=== PATIENT | male | born 1945 | race Caucasian/White ===

== ENCOUNTER → 2016-07-25 | Outpatient (CLI) | payer MEDICARE, OTHER ==
[~2016-07-25] MED LIST: AMLOPIDINE PO; ASPIRIN 32325 MG/TA1 PO; ASPIRIN 32325 MG/TAB PO; ASPIRIN 81M81 MG/TA2 PO; ASPIRIN E.C.325 MG PO; ATENOLOL25 MG PO; BETAPACE 80MG80 MG PO; CALCIUM 600-D 61 TAB PO; CALCIUM WITH D1 CTB PO; CALCIUM/VITAMIN1 CAP PO; CALCIUM1 CAP PO; CATAPRES 0.1MG0.1 MG PO; CATAPRES-T0.2 MG/24 TD; CO ENZYME Q-1050 MG PO; COUMADIN 4MG4 MG/TAB PO; DIOVAN160 M1 PO; ELIQUIS 5MG PO; GUAIFENESIN PO; HEALTH CARE AM325 M1 PO; ISMO20 MG PO; KLOR-CON 1010 MEQ PO; KLOR-CON M2020 MEQ PO; LASIX 20MG TABL20 MG PO; LASIX40 MG PO; LIPITOR 40MG TA40 MG PO; LIPITOR 80MG80 MG PO; LIPITOR40 MG PO; LOPRESSOR 225 MG/TAB PO; LOPRESSOR 550 MG/TAB PO; MICARDIS HCT PO; MULTIPLE VITAMI1 CAP PO; NIASPAN 500MG500 MG PO; NIASPAN500 MG PO; PLAVIX 75MG TAB75 MG PO; PLENDIL PO; PLENDIL10 MG PO; PRADAXA 150MG150 MG PO; PRED FORTE 1 ML1 ML OP; PRILOSEC 20MG20 MG PO; PRILOTC PO; PRINIVIL10 MG PO; PRINIVIL20 MG PO; PRINIVIL40 MG PO; PRINIVIL5 MG PO; REQUIP 0.5MG0.5 MG PO; REQUIP 1MG T1 MG/TAB PO; REQUIP2 MG PO; REQUIP3 MG PO; RT SPIRIVA18 MCG IH; SPIRIVA INH INH; SUPER B COMPLEX1 TA2 PO; TIKOSYN0.5 MG PO; VIAGRA50 M1 PO; VIAGRA50 MG PO; VIGAMOX 0.5% 3 M3 ML OP; VITAMIN B COMPL1 SGL PO; VITAMIN B-12100 MCG PO; VITAMIN B122000 MCG PO; ZESTRIL 20MG TA20 MG PO; [UNRECOGNIZED DRUG - OTHER] PO
== END ==
LOC: COL.PUL 07-04 10:00
DX: J44.9 Chronic obstructive pulmonary disease, unspecified (principal)

== ENCOUNTER 2018-03-20 23:46 | Emergency (ER) | payer MEDICARE, OTHER ==
[2008-07-07 12:36] VITALS: BP 137/59
[~2018-03-20] VITALS: Ht 180.3 cm; Wt 104.5 kg
[2018-03-20 23:48] VITALS: TEMP 97.9
[2018-03-21 00:40] LABS: BASO # 0.1 (0.0-0.2); BASO % 1.3 % (0.0-2.0); EOS # 1.6 (0.0-0.7); EOS % 17.2 % (0-4.0); GRAN # 5.7 (1.4-6.5); GRAN % 59.1 % (42.2-75.2); HEMATOCRIT 37.7 % (42.0-52.0); HEMOGLOBIN 12.9 g/dl (13.5-18.0); LYMPH # 1.2 (1.2-3.4); LYMPH % 12.2 % (20.0-51.0); MEAN CELL VOLUME 88 fl (80.0-100.0); MEAN CORPUSCULAR HEMOGLOBIN 30 pg (27.0-31.0); MEAN CORPUSCULAR HGB CONC 34 g/dl (33.0-37.0); MONO # 0.9 (0.1-0.6); MONO % 9.4 % (1.7-9.3); PLATELET COUNT 433 K/mm3 (130-400); RED BLOOD COUNT 4.28 M/mm3 (4.20-5.60); REDCELL DISTRIBUTION WIDTH-CV 14.8 % (11.5-14.5)
[2018-03-21 00:49] LABS: ALANINE AMINOTRANSFERASE 36 U/L (21-72); ALBUMIN 3.9 gm/dL (3.5-5.0); ALKALINE PHOSPHATASE 108 U/L (50-136); ANION GAP 7 mmol/L (7-16); AST,SGOT 41 U/L (15-37); BILIRUBIN,TOTAL 0.9 mg/dL (0.0-1.0); BLOOD UREA NITROGEN 13 mg/dL (9-20); CALCIUM 8.9 mg/dL (8.4-10.2); CARBON DIOXIDE 29 mmol/L (22-30); CHLORIDE 98 mmol/L (98-107); CREATININE, serum 1.14 mg/dL (0.66-1.25); GLUCOSE 119 mg/dL (74-106); POTASSIUM 3.8 mmol/L (3.4-5.0); SODIUM 133 mmol/L (137-145)
[2018-03-21 01:07] LABS: TROPONIN-I < 0.012 ng/mL (0.000-0.034)
[2018-03-21] MEDS ORDERED: PREDNISONE20 MG PO ×2 (01:26→12:44)
[2018-03-21] MEDS ORDERED: DOXYCYCLINE 10100 MG PO ×2 (01:26→12:44)
[2018-03-21] MEDS ORDERED: PROAIR HFA0.09 MG/AC IH ×2 (01:27→12:44)
[2018-03-21] MEDS ORDERED: ALBUTEROL0.83 MG/ML IH ×2 (02:04→12:44)
[2018-03-21 02:05] VITALS: BP 132/89; PULSE 78
[2018-03-23] MEDS ORDERED: RANEXA 500MG T500 MG PO (13:11)
[2018-03-23] MEDS ORDERED: CATAPRES 0.1MG0.1 MG PO (13:12)
[2018-03-23] MEDS ORDERED: NORVASC 10MG10 MG PO (13:12)
[2018-03-23] MEDS ORDERED: MAGNESIUM500 MG PO (13:14)
== END 2018-03-21 02:06 | disposition home or self-care (01) ==
LOC: COL.ER 23:46
PROVIDERS: Emergency Medicine
DX: J44.1 Chronic obstructive pulmonary disease with (acute) exacerbation (principal); I48.91 Unspecified atrial fibrillation; I50.9 Heart failure, unspecified; F17.210 Nicotine dependence, cigarettes, uncomplicated; Z95.5 Presence of coronary angioplasty implant and graft; Z79.01 Long term (current) use of anticoagulants; Z79.82 Long term (current) use of aspirin
CPT/HCPCS: J1940; J2930; J3475

== ENCOUNTER 2018-05-08 12:33 | Day surgery (SDC) | payer MEDICARE, OTHER ==
[2008-07-07 12:36] VITALS: BP 137/59
[~2018-05-08] VITALS: Ht 180.3 cm; Wt 93.0 kg
[2018-05-08] VITALS (9 sets, daily range): BP systolic 124–174; BP diastolic 63–91; PULSE 68–71; TEMP 98
[~2018-05-08 12:33] MED LIST changes: +ALBUTEROL0.83 MG/ML IH; +DOXYCYCLINE 10100 MG PO; +MAGNESIUM500 MG PO; +NORVASC 10MG10 MG PO; +PREDNISONE20 MG PO; +PROAIR HFA0.09 MG/AC IH; +RANEXA 500MG T500 MG PO
[2018-05-08] MEDS ORDERED: TIKOSYN0.5 MG PO (13:30)
[2018-05-08] MEDS ORDERED: DEMADEX 20MG20 M1 PO (13:34)
[2018-05-08] MEDS ORDERED: PROAIR HFA0.09 MG/AC IH (13:37)
[2018-05-08 13:44] LABS: HEMOGLOBIN 11.7 g/dl (13.5-18.0); MEAN CELL VOLUME 88 fl (80.0-100.0); MEAN CORPUSCULAR HEMOGLOBIN 30 pg (27.0-31.0); MEAN CORPUSCULAR HGB CONC 34 g/dl (33.0-37.0); MEAN PLATELET VOLUME 8.7 fl (7.4-10.4); PLATELET COUNT 322 K/mm3 (130-400); REDCELL DISTRIBUTION WIDTH-CV 13.7 % (11.5-14.5)
[2018-05-08 13:46] LABS: HEMATOCRIT 34.2 % (42.0-52.0)
[2018-05-08 13:57] LABS: CALCIUM 8.6 mg/dL (8.4-10.2); CREATININE, serum 1.51 mg/dL (0.66-1.25)
[2018-05-08 13:59] LABS: INR 1.2 (0.8-3.0)
--- NOTE | 2018-05-08 14:55 | NUR ---
ALL MEDICATIONS GIVEN VIA VERBAL ORDER WITH READBACK WITH MD. SEE MERGE FOR ALL MEDICATION ADMIN TIMES.
--- NOTE | 2018-05-08 15:45 | NUR ---
Pt returned to EU 12 per bed s/p heart cath. Pt resting well, at bedside.
--- NOTE | 2018-05-08 16:36 | NUR ---
Report to Gloria Molina RN who assumed care at this time.
--- NOTE | 2018-05-08 18:03 | NUR ---
Discharge instructions given to pt.Pt verbalizes understanding.
--- NOTE | 2018-05-08 18:31 | NUR ---
INT removed,catheter tip intact.Pt escorted out via wheelchair by this nurse.
== END 2018-05-08 18:31 | disposition home or self-care (01) ==
LOC: COL.CAR 12:33
PROVIDERS: Internal Medicine Interventional Cardiology
DX: I34.0 Nonrheumatic mitral (valve) insufficiency (principal); Z95.2 Presence of prosthetic heart valve; I73.9 Peripheral vascular disease, unspecified; I50.30 Unspecified diastolic (congestive) heart failure; J44.9 Chronic obstructive pulmonary disease, unspecified; N18.9 Chronic kidney disease, unspecified; Z79.899 Other long term (current) drug therapy; Z95.5 Presence of coronary angioplasty implant and graft; Z86.73 Personal history of transient ischemic attack (TIA), and cerebral infarction without residual deficits; Z95.820 Peripheral vascular angioplasty status with implants and grafts; Z87.891 Personal history of nicotine dependence; Z95.0 Presence of cardiac pacemaker; Z79.01 Long term (current) use of anticoagulants; Z79.82 Long term (current) use of aspirin
CPT/HCPCS: J1644; J1940; J2250; J3010; Q9967

== ENCOUNTER 2018-06-13 07:13 | Emergency (ER) | payer MEDICARE, OTHER ==
[2008-07-07 12:36] VITALS: BP 137/59
[~2018-06-13] VITALS: Ht 177.8 cm; Wt 92.3 kg
[~2018-06-13 07:13] MED LIST changes: +DEMADEX 20MG20 M1 PO
[2018-06-13 07:15] VITALS: TEMP 97.9
[2018-06-13 07:44] LABS: BASO # 0.2 (0.0-0.2); BASO % 1.4 % (0.0-2.0); EOS # 1.8 (0.0-0.7); EOS % 16.1 % (0-4.0); GRAN # 7.6 (1.4-6.5); GRAN % 68.8 % (42.2-75.2); HEMATOCRIT 38.9 % (42.0-52.0); HEMOGLOBIN 13.6 g/dl (13.5-18.0); LYMPH # 0.8 (1.2-3.4); LYMPH % 7.3 % (20.0-51.0); MEAN CELL VOLUME 86 fl (80.0-100.0); MEAN CORPUSCULAR HEMOGLOBIN 30 pg (27.0-31.0); MEAN CORPUSCULAR HGB CONC 35 g/dl (33.0-37.0); MEAN PLATELET VOLUME 8.8 fl (7.4-10.4); MONO # 0.7 (0.1-0.6); PLATELET COUNT 409 K/mm3 (130-400); RED BLOOD COUNT 4.52 M/mm3 (4.20-5.60); REDCELL DISTRIBUTION WIDTH-CV 13.7 % (11.5-14.5)
[2018-06-13 07:53] LABS: ALBUMIN 4.3 gm/dL (3.5-5.0); BILIRUBIN,TOTAL 0.8 mg/dL (0.0-1.0); CALCIUM 9.4 mg/dL (8.4-10.2); CREATININE, serum 1.59 mg/dL (0.66-1.25); POTASSIUM 3.7 mmol/L (3.4-5.0); TOTAL PROTEIN 7.9 gm/dL (6.4-8.2)
[2018-06-13] MEDS ORDERED: PRINIVIL40 MG PO (09:14)
[2018-06-13] MEDS ORDERED: MEDROL 4MG DOSPA4 MG PO (10:11)
[2018-06-13 11:13] VITALS: BP 140/81; PULSE 89
== END 2018-06-13 11:20 | disposition home or self-care (01) ==
LOC: COL.ER 07:13
PROVIDERS: Emergency Medicine
DX: J44.1 Chronic obstructive pulmonary disease with (acute) exacerbation (principal); I50.9 Heart failure, unspecified; F17.210 Nicotine dependence, cigarettes, uncomplicated; Z79.82 Long term (current) use of aspirin
CPT/HCPCS: J1940; J2930; J7512

== ENCOUNTER 2018-06-26 16:13 | Emergency (ER) | payer MEDICARE, OTHER ==
[2008-07-07 12:36] VITALS: BP 137/59
[~2018-06-26] VITALS: Ht 177.8 cm; Wt 88.6 kg
[~2018-06-26 16:13] MED LIST changes: +MEDROL 4MG DOSPA4 MG PO; +PREDNISONE10 MG PO
[2018-06-26 16:17] VITALS: TEMP 97.5
[2018-06-26 16:43] LABS: BASO % 0.4 % (0.0-2.0); EOS % 0.2 % (0-4.0); GRAN # 9.8 (1.4-6.5); GRAN % 88.3 % (42.2-75.2); HEMATOCRIT 42.1 % (42.0-52.0); HEMOGLOBIN 14.5 g/dl (13.5-18.0); LYMPH # 0.7 (1.2-3.4); LYMPH % 6.1 % (20.0-51.0); MEAN CELL VOLUME 88 fl (80.0-100.0); MEAN CORPUSCULAR HEMOGLOBIN 30 pg (27.0-31.0); MEAN CORPUSCULAR HGB CONC 34 g/dl (33.0-37.0); MEAN PLATELET VOLUME 8.5 fl (7.4-10.4); MONO # 0.4 (0.1-0.6); MONO % 3.9 % (1.7-9.3); PLATELET COUNT 482 K/mm3 (130-400); REDCELL DISTRIBUTION WIDTH-CV 13.8 % (11.5-14.5)
[2018-06-26 17:00] LABS: ALBUMIN 3.9 gm/dL (3.5-5.0); BILIRUBIN,TOTAL 0.7 mg/dL (0.0-1.0); CALCIUM 8.9 mg/dL (8.4-10.2); CREATININE, serum 1.86 mg/dL (0.66-1.25); MAGNESIUM 1.5 mg/dL (1.6-2.3); PHOSPHOROUS 4.3 mg/dL (2.5-4.5); POTASSIUM 5.4 mmol/L (3.4-5.0); TOTAL PROTEIN 7.1 gm/dL (6.4-8.2)
[2018-06-26 17:36] LABS: INR 1.2 (0.8-3.0)
[2018-06-26 17:39] LABS: PARTIAL THROMBOPLASTIN TIME 33.7 SECONDS (26.0-37.0)
[2018-06-26 17:57] LABS: COLLECTION METHOD CLEAN CATCH
[2018-06-26 18:02] LABS: PH 7 (5-8); SQUAMOUS EPITHELIAL None Seen /hpf; URINE APPEARANCE Clear; URINE BACTERIA None Seen /hpf; URINE BILIRUBIN Negative (NEGATIVE); URINE BLOOD Negative (NEGATIVE); URINE COLOR Yellow; URINE GLUCOSE Negative (NEGATIVE); URINE KETONE Negative (NEGATIVE); URINE LEUKOCYTE ESTERASE Negative (NEGATIVE); URINE NITRATE Negative (NEGATIVE); URINE PROTEIN(semi-quant) Negative (NEGATIVE); URINE RBC 0-2 /hpf; URINE UROBILINOGEN Negative (NEGATIVE)
[2018-06-26 18:27] VITALS: BP 130/71; PULSE 70
== END 2018-06-26 18:30 | disposition home or self-care (01) ==
LOC: COL.ER 16:13
PROVIDERS: Emergency Medicine
DX: E87.6 Hypokalemia (principal); E87.1 Hypo-osmolality and hyponatremia; I48.91 Unspecified atrial fibrillation; Z79.01 Long term (current) use of anticoagulants; Z79.82 Long term (current) use of aspirin

== ENCOUNTER → 2018-07-25 | Outpatient (CLI) | payer MEDICARE, OTHER | LOC: COL.VAS 10:30 | DX: R60.0 Localized edema (principal) ==

== ENCOUNTER 2018-08-10 00:13 | Observation (INO) | payer MEDICARE, OTHER ==
[~2018-08-10] VITALS: Ht 180.3 cm; Wt 85.2 kg
[~2018-08-10 00:13] MED LIST changes: -CALCIUM 600-D 61 TAB PO; +LOPRESSOR100 MG PO; +MAGNESIUM ELEM300 MG PO; -MAGNESIUM500 MG PO; +OS-CAL 500 + D1 TAB PO
[2018-08-10 00:35] LABS: BASO # 0.1 (0.0-0.2); BASO % 0.9 % (0.0-2.0); EOS # 2.2 (0.0-0.7); EOS % 15.8 % (0-4.0); HEMATOCRIT 40.2 % (42.0-52.0); HEMOGLOBIN 13.8 g/dl (13.5-18.0); INR 1.7 (0.8-3.0); LYMPH # 1.4 (1.2-3.4); LYMPH % 10.2 % (20.0-51.0); MEAN CELL VOLUME 90 fl (80.0-100.0); MEAN CORPUSCULAR HEMOGLOBIN 31 pg (27.0-31.0); MEAN CORPUSCULAR HGB CONC 34 g/dl (33.0-37.0); MEAN PLATELET VOLUME 8.7 fl (7.4-10.4); MONO # 1.2 (0.1-0.6); MONO % 8.7 % (1.7-9.3); PLATELET COUNT 376 K/mm3 (130-400); PROTHROMBIN TIME 19.2 SECONDS (9.7-12.8); RED BLOOD COUNT 4.49 M/mm3 (4.20-5.60); REDCELL DISTRIBUTION WIDTH-CV 13.7 % (11.5-14.5)
[2018-08-10 00:49] LABS: ALANINE AMINOTRANSFERASE 17 U/L (21-72); ALKALINE PHOSPHATASE 102 U/L (50-136); ANION GAP 11 mmol/L (7-16); AST,SGOT 33 U/L (15-37); BILIRUBIN,TOTAL 1.1 mg/dL (0.0-1.0); BLOOD UREA NITROGEN 18 mg/dL (9-20); CARBON DIOXIDE 28 mmol/L (22-30); CHLORIDE 91 mmol/L (98-107); CREATININE, serum 1.41 (0.66-1.25); GLUCOSE 118 mg/dL (74-106); POTASSIUM 3.9 mmol/L (3.4-5.0); SODIUM 130 mmol/L (137-145); TOTAL PROTEIN 7.5 gm/dL (6.4-8.2)
[2018-08-10 00:59] LABS: TROPONIN-I < 0.012 ng/mL (0.000-0.035)
--- NOTE | 2018-08-10 02:29 | NUR ---
Pt arrived to room 315 via wheelchair accompanied by ER staff and .
[2018-08-10 02:32] VITALS: BP 148/69; PULSE 90; TEMP 97.9
[2018-08-10] MEDS ORDERED: PROAIR HFA0.09 MG/AC IH (02:38)
[2018-08-10] MEDS ORDERED: CATAPRES 0.1MG0.1 MG PO (02:41)
--- NOTE | 2018-08-10 03:05 | NUR ---
Assessment completed- expiratory wheezes in lungs, abdominal sounds active, pulses +3, ambulatory, alert and oriented x4. Reports diarrhea, gone to bathroom 4 times since hospitalization. REports had some back pain and right leg pain earlier in the day that has since resolved. at bedside.
[2018-08-10 04:03] VITALS: BP 118/55; BP 122/69; PULSE 64; PULSE 88; TEMP 97.4; TEMP 97.7
--- NOTE | 2018-08-10 05:18 | NUR ---
PT CALLED THIS NURSE, STATES "I'M HAVING TROUBLE BREATHING. RT CALLED AND WILL COME UP AND GIVE A BREATHING TREATMENT. UPON AUSCULTATION OF LUNGS PT HAS EXPIRATORY WHEEZES THROUGHOUT. THIS NURSE HELPED PATIENT SIT UP IN BED WELL.
[2018-08-10 05:59] LABS: BASO # 0.2 (0.0-0.2); BASO % 1.1 % (0.0-2.0); EOS # 1.9 (0.0-0.7); EOS % 13.5 % (0-4.0); GRAN # 9.4 (1.4-6.5); GRAN % 67.5 % (42.2-75.2); HEMATOCRIT 39.9 % (42.0-52.0); HEMOGLOBIN 13.6 g/dl (13.5-18.0); LYMPH # 1.3 (1.2-3.4); LYMPH % 9.1 % (20.0-51.0); MEAN CELL VOLUME 89 fl (80.0-100.0); MEAN CORPUSCULAR HEMOGLOBIN 30 pg (27.0-31.0); MEAN CORPUSCULAR HGB CONC 34 g/dl (33.0-37.0); MEAN PLATELET VOLUME 8.8 fl (7.4-10.4); MONO # 1.2 (0.1-0.6); MONO % 8.3 % (1.7-9.3); PLATELET COUNT 377 K/mm3 (130-400); REDCELL DISTRIBUTION WIDTH-CV 13.6 % (11.5-14.5)
[2018-08-10 06:09] LABS: CALCIUM 9.2 mg/dL (8.4-10.2); CREATININE, serum 1.31 (0.66-1.25); POTASSIUM 3.9 mmol/L (3.4-5.0)
--- NOTE | 2018-08-10 07:34 | NUR ---
REPORT GIVEN TO LIBBY COLBY. PATIENT ASLEEP AT THIS TIME.
--- NOTE | 2018-08-10 08:00 | NUR ---
Pt asleep when entering room, awoke with greeting. HOB at 15-20degrees while sleeping denies shortness of breath or limiting orthopnea. Pt able to sit self up on side of bed independently without difficutly for lung ascultation. States "breathing feels much better than when I first got here". Family member asleep on bench in room. Meal offered and refused. Pt Independent in room, menu/phone/call light within reach. No complaits at this time
[2018-08-10 08:24] VITALS: BP 166/78; PULSE 81; TEMP 98
[2018-08-10 11:03] VITALS: BP 146/66; PULSE 75; TEMP 97.8
--- NOTE | 2018-08-10 13:48 | NUR ---
SW and SW student met with the patient to discuss discharge plan. The patient lives in [place] with his , Renetta. He reports independence with ADLs and does not use any DME. The patient's PCP is Dr. Jannette Randle and he receives his medications from [facility]. He reports no difficulties obtaining his meds. The patient does not have advanced directives in EMR, but he states that he does have them completed and that they should be at home. The patient plans to return home with his upon discharge. No additional needs at this time.
[2018-08-10 16:13] VITALS: BP 157/78; PULSE 80; TEMP 98
[2018-08-10 19:29] VITALS: BP 135/87; PULSE 78; TEMP 97.7
--- NOTE | 2018-08-10 19:29 | NUR ---
Pt sitting at side of bed. RT at bedside administering Breathing Tx. No distress noted. Exp. wheezes in all lung peñaloza. VSS- SPO2 100% on RA. Pt denies pain. Pt reports SOB that worsens while lying down. Pt states dyspnea has improved since he was given IV steroids. No needs noted at this time.
--- NOTE | 2018-08-10 21:15 | NUR ---
Pt sleeping. No distress noted. Easily arousable. Pt reports that dyspnea has lessened and he is able to get rest now. Ambulates to bathroom and back. Takes medications. No needs noted
[2018-08-11] VITALS: BP 123/62; PULSE 78
[2018-08-11 03:10] VITALS: BP 151/77; PULSE 68; TEMP 98
--- NOTE | 2018-08-11 03:10 | NUR ---
Pt sleeping, but easily arousable. Pt reports better ability to breathe. Lungs are clear to auscultation. VSS.
--- NOTE | 2018-08-11 05:52 | NUR ---
Pt sitting up at side of bed this AM. No distress noted. Pt reports SOB is basically resolved. Pt reports getting some rest last night. Denies pain or needs.
[2018-08-11 06:46] LABS: BASO % 0.2 % (0.0-2.0); GRAN # 4.6 (1.4-6.5); GRAN % 87.8 % (42.2-75.2); HEMATOCRIT 39.6 % (42.0-52.0); HEMOGLOBIN 13.8 g/dl (13.5-18.0); LYMPH # 0.4 (1.2-3.4); LYMPH % 8.2 % (20.0-51.0); MEAN CELL VOLUME 87 fl (80.0-100.0); MEAN CORPUSCULAR HEMOGLOBIN 30 pg (27.0-31.0); MEAN CORPUSCULAR HGB CONC 35 g/dl (33.0-37.0); MONO # 0.2 (0.1-0.6); MONO % 3.2 % (1.7-9.3); PLATELET COUNT 391 K/mm3 (130-400); RED BLOOD COUNT 4.55 M/mm3 (4.20-5.60); REDCELL DISTRIBUTION WIDTH-CV 13.8 % (11.5-14.5)
[2018-08-11 06:59] LABS: CALCIUM 9.2 mg/dL (8.4-10.2); CREATININE, serum 1.32 (0.66-1.25); MAGNESIUM 1.7 mg/dL (1.6-2.3); POTASSIUM 4.1 mmol/L (3.4-5.0)
[2018-08-11 07:40] VITALS: BP 151/80; PULSE 81; TEMP 97.6
--- NOTE | 2018-08-11 08:07 | NUR ---
Assessment complete. Alert and oriented to person, place, and day. Patient denies any pain at this time. Expiratory wheezes present in right upper lobe and left lower lobe. Right middle, lower, and left upper lobes clear, on room air. Patient denies any difficulties breathing or shortness of breath at this time. Heart sounds regular, no murmurs noted, on tele. Patient denies chest pain. INT IV in left AC is CDI, flushes easily with no reports of burning. Patient is sitting up in bed at this time with family at bedside. Morning medications have been administered. Patient denies any further needs at this time. Call light within reach, will continue to monitor.
--- NOTE | 2018-08-11 10:38 | NUR ---
First visit from the injection mold technician. No needs right now.
[2018-08-11 11:48] VITALS: BP 149/68; PULSE 78; TEMP 98.5
--- NOTE | 2018-08-11 12:15 | NUR ---
Patient resting in bed with family at bedside. Denies pain or any needs at this time. Patient refused shower and wants to wait until he goes home. Call light within reach, will continue to monitor.
[2018-08-11] MEDS ORDERED: ALDACTONE 25MG25 M1 PO (14:22)
[2018-08-11] MEDS ORDERED: DEMADEX10 MG PO (14:23)
[2018-08-11] MEDS ORDERED: ZEBETA 5MG5 MG PO (14:24)
[2018-08-11] MEDS ORDERED: LOPRESSOR100 MG PO (14:24)
[2018-08-11] MEDS ORDERED: PRINIVIL40 MG PO (14:25)
[2018-08-11] MEDS ORDERED: PREDNISONE20 MG PO (14:25)
--- NOTE | 2018-08-11 15:30 | NUR ---
Patient discharged at this time. Left AC INT discontinued with catherter tip intact. Education was provided and all questions answered. Escorted out, ambulatory with family member.
== END 2018-08-11 15:30 | disposition home or self-care (01) ==
LOC: COL.ER 00:13 → MEDICAL 01:25
PROVIDERS: Emergency Medicine; Nurse Practitioner; Physician Assistant; ADMIT Hospitalist
DX: J44.1 Chronic obstructive pulmonary disease with (acute) exacerbation (principal); I13.0 Hypertensive heart and chronic kidney disease with heart failure and stage 1 through stage 4 chronic kidney disease, or unspecified chronic kidney disease; I50.30 Unspecified diastolic (congestive) heart failure; N18.9 Chronic kidney disease, unspecified; I34.0 Nonrheumatic mitral (valve) insufficiency; I73.9 Peripheral vascular disease, unspecified; E78.5 Hyperlipidemia, unspecified; D72.829 Elevated white blood cell count, unspecified; I48.91 Unspecified atrial fibrillation; E87.1 Hypo-osmolality and hyponatremia; K21.9 Gastro-esophageal reflux disease without esophagitis; R53.81 Other malaise; Z79.01 Long term (current) use of anticoagulants; Z79.82 Long term (current) use of aspirin; Z95.2 Presence of prosthetic heart valve; Z87.891 Personal history of nicotine dependence; Z95.0 Presence of cardiac pacemaker
CPT/HCPCS: 99239; G0378; J1940; J2920; J3105; J7512

== ENCOUNTER 2018-09-05 23:47 | Emergency (ER) | payer MEDICARE, OTHER ==
[2008-07-07 12:36] VITALS: BP 137/59
[~2018-09-05] VITALS: Ht 180.3 cm; Wt 86.8 kg
[~2018-09-05 23:47] MED LIST changes: +ALDACTONE 25MG25 M1 PO; +DEMADEX10 MG PO; +ZEBETA 5MG5 MG PO
[2018-09-05 23:53] VITALS: BP 121/68; PULSE 70; TEMP 98.7
[2018-09-07] MEDS ORDERED: ZOFRAN ODT4 MG PO (21:13)
== END 2018-09-06 00:48 | disposition home or self-care (01) ==
LOC: COL.ER 23:47
DX: T81.31XA Disruption of external operation (surgical) wound, not elsewhere classified, initial encounter (principal); I48.91 Unspecified atrial fibrillation; J44.9 Chronic obstructive pulmonary disease, unspecified; I13.0 Hypertensive heart and chronic kidney disease with heart failure and stage 1 through stage 4 chronic kidney disease, or unspecified chronic kidney disease; N18.9 Chronic kidney disease, unspecified; I50.9 Heart failure, unspecified; I73.9 Peripheral vascular disease, unspecified; E78.5 Hyperlipidemia, unspecified; K21.9 Gastro-esophageal reflux disease without esophagitis; Z86.79 Personal history of other diseases of the circulatory system; Z95.0 Presence of cardiac pacemaker; Z87.891 Personal history of nicotine dependence; Z79.51 Long term (current) use of inhaled steroids; Z79.82 Long term (current) use of aspirin; Z79.01 Long term (current) use of anticoagulants

== ENCOUNTER 2018-09-07 17:48 | Emergency (ER) | payer MEDICARE, OTHER ==
[2008-07-07 12:36] VITALS: BP 137/59
[~2018-09-07] VITALS: Ht 180.3 cm; Wt 86.8 kg
[2018-09-07 18:00] VITALS: TEMP 98.4
[2018-09-07 18:28] LABS: BASO # 0.1 (0.0-0.2); BASO % 0.8 % (0.0-2.0); EOS # 0.2 (0.0-0.7); EOS % 2.3 % (0-4.0); GRAN # 7.4 (1.4-6.5); GRAN % 81.4 % (42.2-75.2); HEMOGLOBIN 12.2 g/dl (13.5-18.0); LYMPH # 0.6 (1.2-3.4); LYMPH % 6.5 % (20.0-51.0); MEAN CELL VOLUME 86 fl (80.0-100.0); MEAN CORPUSCULAR HEMOGLOBIN 30 pg (27.0-31.0); MEAN CORPUSCULAR HGB CONC 35 g/dl (33.0-37.0); MONO # 0.8 (0.1-0.6); MONO % 8.3 % (1.7-9.3); PLATELET COUNT 361 K/mm3 (130-400); RED BLOOD COUNT 4.09 M/mm3 (4.20-5.60); REDCELL DISTRIBUTION WIDTH-CV 13.2 % (11.5-14.5)
[2018-09-07 18:29] LABS: HEMATOCRIT 35.1 % (42.0-52.0)
[2018-09-07 18:31] LABS: INR 1.5 (0.8-3.0); PROTHROMBIN TIME 17.6 SECONDS (9.7-12.8)
[2018-09-07 18:40] LABS: ALANINE AMINOTRANSFERASE 14 U/L (21-72); ALBUMIN 3.6 gm/dL (3.5-5.0); ALKALINE PHOSPHATASE 124 U/L (50-136); ANION GAP 11 mmol/L (7-16); AST,SGOT 43 U/L (15-37); BILIRUBIN,TOTAL 0.8 mg/dL (0.0-1.0); BLOOD UREA NITROGEN 20 mg/dL (9-20); C-REACTIVE PROTEIN 2.5 mg/dL (0.0-0.9); CALCIUM 8.7 mg/dL (8.4-10.2); CARBON DIOXIDE 28 mmol/L (22-30); CHLORIDE 91 mmol/L (98-107); CREATININE, serum 1.59 (0.66-1.25); GLUCOSE 118 mg/dL (74-106); LIPASE 55 U/L (23-300); POTASSIUM 3.9 mmol/L (3.4-5.0); SODIUM 129 mmol/L (137-145); TOTAL PROTEIN 6.8 gm/dL (6.4-8.2)
[2018-09-07 18:49] LABS: TROPONIN-I < 0.012 ng/mL (0.000-0.035)
[2018-09-07 18:54] LABS: ARTERIAL BLD GAS O2 SATURATION 91.8 % (92-100); ARTERIAL BLD GAS TCO2 CT 28.1; ARTERIAL BLOOD GAS BASE EXCESS 3.2 (-2-2); ARTERIAL BLOOD GAS HCO3 26.9 meq/L (22-26); ARTERIAL BLOOD GAS PCO2 37.9 mmHg (35-45); ARTERIAL BLOOD GAS PO2 65.6 mmHg (80-100); ARTERIAL BLOOD GAS pH 7.47 (7.35-7.45)
[2018-09-07] MEDS ORDERED: ZOFRAN ODT4 MG PO (21:13)
[2018-09-07 22:01] VITALS: BP 129/75; PULSE 84
[2018-09-11] MEDS ORDERED: LOPRESSOR100 MG PO (10:19)
[2018-09-11] MEDS ORDERED: VIAGRA50 M1 PO (10:22)
[2018-09-11] MEDS ORDERED: DEMADEX 20MG20 M1 PO (10:22)
[2018-09-11] MEDS ORDERED: ROXICODONE 55 MG/TAB PO (16:25)
[2018-09-11] MEDS ORDERED: NORCO 325 MG-7.1 TAB PO (16:26)
== END 2018-09-07 21:35 | disposition home or self-care (01) ==
LOC: COL.ER 17:48
PROVIDERS: Emergency Medicine
DX: R11.2 Nausea with vomiting, unspecified (principal); J44.9 Chronic obstructive pulmonary disease, unspecified; I13.0 Hypertensive heart and chronic kidney disease with heart failure and stage 1 through stage 4 chronic kidney disease, or unspecified chronic kidney disease; N18.9 Chronic kidney disease, unspecified; I50.9 Heart failure, unspecified; I48.91 Unspecified atrial fibrillation; E78.5 Hyperlipidemia, unspecified; I73.9 Peripheral vascular disease, unspecified; Z87.19 Personal history of other diseases of the digestive system; Z95.2 Presence of prosthetic heart valve; Z98.890 Other specified postprocedural states; Z87.891 Personal history of nicotine dependence; Z79.51 Long term (current) use of inhaled steroids; Z79.82 Long term (current) use of aspirin; Z79.01 Long term (current) use of anticoagulants
CPT/HCPCS: J2405; J7030

== ENCOUNTER 2018-10-12 11:37 | Day surgery (SDC) | payer MEDICARE, OTHER ==
[2008-07-07 12:36] VITALS: BP 137/59
[~2018-10-12] VITALS: Ht 180.3 cm; Wt 85.0 kg
[2018-10-12] VITALS (9 sets, daily range): BP systolic 116–144; BP diastolic 70–78; PULSE 47–66; TEMP 98.2
[~2018-10-12 11:37] MED LIST changes: +NORCO 325 MG-7.1 TAB PO; +ROXICODONE 55 MG/TAB PO; +ZOFRAN ODT4 MG PO
[2018-10-12 12:27] LABS: HEMOGLOBIN 10.3 g/dl (13.5-18.0); MEAN CELL VOLUME 87 fl (80.0-100.0); MEAN CORPUSCULAR HEMOGLOBIN 29 pg (27.0-31.0); MEAN CORPUSCULAR HGB CONC 34 g/dl (33.0-37.0); MEAN PLATELET VOLUME 8.7 fl (7.4-10.4); PLATELET COUNT 368 K/mm3 (130-400); RED BLOOD COUNT 3.54 M/mm3 (4.20-5.60); REDCELL DISTRIBUTION WIDTH-CV 13.2 % (11.5-14.5)
--- NOTE | 2018-10-12 12:30 | NUR ---
Patient alert and oriented x4. Lungs CTA bilaterally. Heart rate regular.
[2018-10-12 12:35] LABS: HEMATOCRIT 30.7 % (42.0-52.0)
[2018-10-12 12:42] LABS: CALCIUM 8.2 mg/dL (8.4-10.2); CREATININE, serum 1.06 (0.66-1.25); INR 1.1 (0.8-3.0); POTASSIUM 4.2 mmol/L (3.4-5.0); PROTHROMBIN TIME 13.1 SECONDS (9.7-12.8)
--- NOTE | 2018-10-12 13:14 | NUR ---
Report received from LIBBY Johnson.
--- NOTE | 2018-10-12 14:26 | NUR ---
PLEASE SEE MERGE FOR ALL MEDIACTION ADMINISTRATION TIMES,SEDATION ASSESSMENT DATA FOR DURING AND POST PROCEDURE.
--- NOTE | 2018-10-12 18:16 | NUR ---
Discharge instructions given to pt.Pt verbalizes understanding.INT removed,cathetr tip intact.
--- NOTE | 2018-10-12 18:28 | NUR ---
Pt escorted out via wheelchair.
== END 2018-10-12 18:32 | disposition home or self-care (01) ==
LOC: COL.CAR 11:37
PROVIDERS: Internal Medicine Interventional Cardiology
DX: I34.0 Nonrheumatic mitral (valve) insufficiency (principal); I25.10 Atherosclerotic heart disease of native coronary artery without angina pectoris; I73.9 Peripheral vascular disease, unspecified; J44.9 Chronic obstructive pulmonary disease, unspecified; I48.91 Unspecified atrial fibrillation; Z87.891 Personal history of nicotine dependence; Z95.0 Presence of cardiac pacemaker; Z95.2 Presence of prosthetic heart valve; Z79.82 Long term (current) use of aspirin; Z79.01 Long term (current) use of anticoagulants
CPT/HCPCS: J1644; J1940; J2250; J3010; Q9967

== ENCOUNTER 2018-10-21 22:06 | Emergency (ER) | payer MEDICARE, OTHER ==
[2008-07-07 12:36] VITALS: BP 137/59
[~2018-10-21] VITALS: Ht 180.3 cm; Wt 85.5 kg
[2018-10-21 22:14] VITALS: TEMP 97.8
[2018-10-21 22:43] LABS: HEMOGLOBIN 12.4 g/dl (13.5-18.0); MEAN CELL VOLUME 86 fl (80.0-100.0); MEAN CORPUSCULAR HEMOGLOBIN 29 pg (27.0-31.0); MEAN CORPUSCULAR HGB CONC 34 g/dl (33.0-37.0); MEAN PLATELET VOLUME 8.8 fl (7.4-10.4); PLATELET COUNT 426 K/mm3 (130-400); RED BLOOD COUNT 4.27 M/mm3 (4.20-5.60); REDCELL DISTRIBUTION WIDTH-CV 13.2 % (11.5-14.5)
[2018-10-21 22:45] LABS: HEMATOCRIT 36.8 % (42.0-52.0)
[2018-10-21 22:52] LABS: BILIRUBIN,TOTAL 0.8 mg/dL (0.0-1.0); CALCIUM 9.1 mg/dL (8.4-10.2); CREATININE, serum 1.41 (0.66-1.25); POTASSIUM 4.7 mmol/L (3.4-5.0); TOTAL PROTEIN 7.7 gm/dL (6.4-8.2)
[2018-10-21 23:05] LABS: EOSINOPHIL 20 % (0-4); LYMPHOCYTE 12 % (20.0-51.0); NEUTROPHILS 55 % (42.0-75.2)
[2018-10-21 23:06] LABS: PLATELET ESTIMATE NORMAL (NORMAL)
[2018-10-22 03:30] VITALS: BP 137/68; PULSE 90
== END 2018-10-22 03:30 | disposition short-term general hospital (02) ==
LOC: COL.ER 22:06
PROVIDERS: Emergency Medicine
DX: J44.1 Chronic obstructive pulmonary disease with (acute) exacerbation (principal); I48.91 Unspecified atrial fibrillation; N18.9 Chronic kidney disease, unspecified; F17.210 Nicotine dependence, cigarettes, uncomplicated; Z95.9 Presence of cardiac and vascular implant and graft, unspecified; Z79.82 Long term (current) use of aspirin
CPT/HCPCS: J2930; J7030

== ENCOUNTER 2018-12-12 08:13 | Day surgery (SDC) | payer MEDICARE, OTHER ==
[2008-07-07 12:36] VITALS: BP 137/59
[~2018-12-12] VITALS: Ht 180.3 cm; Wt 93.0 kg
[2018-12-12] MEDS ORDERED: FLOVENT DI100 MCG/Ac (08:33)
[2018-12-12] MEDS ORDERED: PRINIVIL40 MG PO (08:37)
[2018-12-12] MEDS ORDERED: IPRATROPIUM BROM3 M1 IH (08:38)
[2018-12-12] MEDS ORDERED: ZOFRAN 4MG T4 MG/TAB PO (08:39)
[2018-12-12 09:00] VITALS: BP 120/63; PULSE 62; TEMP 97.8
[2018-12-12 09:07] LABS: PROTHROMBIN TIME 23.7 SECONDS (9.7-12.8)
[2018-12-12] MEDS ORDERED: ENSURE 237 ML237 ML PO (09:09)
[2018-12-12 09:10] LABS: POTASSIUM 4.6 mmol/L (3.4-5.0)
[2018-12-12 09:45] LABS: THYROID STIMULATING HORMONE 1.79 uIU/mL (0.465-4.680)
[2018-12-12 11:30] VITALS: BP 113/69; PULSE 68
[2018-12-12 11:45] VITALS: BP 114/76; PULSE 75
[2018-12-12 12:00] VITALS: BP 121/62; PULSE 67
== END 2018-12-12 12:30 | disposition home or self-care (01) ==
LOC: COL.CAR 08:13
PROVIDERS: Internal Medicine Interventional Cardiology
DX: I48.0 Paroxysmal atrial fibrillation (principal); I34.0 Nonrheumatic mitral (valve) insufficiency; I73.9 Peripheral vascular disease, unspecified; I25.10 Atherosclerotic heart disease of native coronary artery without angina pectoris; E78.5 Hyperlipidemia, unspecified; I11.0 Hypertensive heart disease with heart failure; J44.9 Chronic obstructive pulmonary disease, unspecified; K21.9 Gastro-esophageal reflux disease without esophagitis; I50.30 Unspecified diastolic (congestive) heart failure; D64.9 Anemia, unspecified; Z79.82 Long term (current) use of aspirin; Z95.0 Presence of cardiac pacemaker; Z79.01 Long term (current) use of anticoagulants; Z86.73 Personal history of transient ischemic attack (TIA), and cerebral infarction without residual deficits; Z87.891 Personal history of nicotine dependence; Z91.048 Other nonmedicinal substance allergy status
CPT/HCPCS: J2704; J7120

== ENCOUNTER 2018-12-28 18:27 | Emergency (ER) | payer MEDICARE, OTHER ==
[2008-07-07 12:36] VITALS: BP 137/59
[~2018-12-28] VITALS: Ht 180.3 cm; Wt 90.9 kg
[~2018-12-28 18:27] MED LIST changes: +ENSURE 237 ML237 ML PO; +FLOVENT DI100 MCG/Ac; +IPRATROPIUM BROM3 M1 IH; +ZOFRAN 4MG T4 MG/TAB PO
[2018-12-28 18:43] VITALS: BP 147/65; TEMP 98.4
[2018-12-28 20:00] VITALS: PULSE 80
== END 2018-12-28 20:00 | disposition home or self-care (01) ==
LOC: COL.ER 18:27
DX: R58 Hemorrhage, not elsewhere classified (principal); I48.91 Unspecified atrial fibrillation; Z79.82 Long term (current) use of aspirin

== ENCOUNTER 2019-01-18 10:05 | Day surgery (SDC) | payer MEDICARE, OTHER ==
[2008-07-07 12:36] VITALS: BP 137/59
--- NOTE | 2019-01-17 19:05 | NUR ---
CALLED PT, LEFT VOICEMAIL MESSAGE WITH PROCEDURE INSTRUCTIONS, ASKED PT TO CALL BACK IF ABLE BEFORE 8 PM.
[~2019-01-18] VITALS: Ht 180.3 cm; Wt 84.4 kg
[2019-01-18 10:53] LABS: INR 1.8 (0.8-3.0); PROTHROMBIN TIME 21.1 SECONDS (9.7-12.8)
[2019-01-18 11:12] VITALS: BP 114/73; PULSE 63; TEMP 97.5
[2019-01-18 11:27] LABS: THYROID STIMULATING HORMONE 2.69 uIU/mL (0.465-4.680)
[2019-01-18 11:45] VITALS: BP 120/60; PULSE 57; TEMP 97.5
--- NOTE | 2019-01-18 11:45 | NUR ---
LIZ/Cardioversion complete. Pt resting . VSS
[2019-01-18 12:00] VITALS: BP 116/66; PULSE 52; TEMP 97.5
[2019-01-18 12:15] VITALS: BP 117/59; PULSE 50; TEMP 97.5
[2019-01-18 12:30] VITALS: BP 117/60; PULSE 50; TEMP 97.5
[2019-01-18 13:00] VITALS: BP 124/61; PULSE 53; TEMP 97.3
--- NOTE | 2019-01-18 13:05 | NUR ---
INT discontinued intact. Dr. Vogt in to see pt. VSS. Discharge instructions given
--- NOTE | 2019-01-18 13:18 | NUR ---
Transferred to private car by [email or web address]
== END 2019-01-18 13:19 | disposition home or self-care (01) ==
LOC: COL.CAR 10:05
PROVIDERS: Internal Medicine Interventional Cardiology
DX: I48.0 Paroxysmal atrial fibrillation (principal); I11.0 Hypertensive heart disease with heart failure; I50.30 Unspecified diastolic (congestive) heart failure; I42.0 Dilated cardiomyopathy; K21.9 Gastro-esophageal reflux disease without esophagitis; L98.499 Non-pressure chronic ulcer of skin of other sites with unspecified severity; Z95.0 Presence of cardiac pacemaker; F17.210 Nicotine dependence, cigarettes, uncomplicated; E78.5 Hyperlipidemia, unspecified; Z95.2 Presence of prosthetic heart valve; I34.0 Nonrheumatic mitral (valve) insufficiency; I08.2 Rheumatic disorders of both aortic and tricuspid valves
CPT/HCPCS: J2704; J7030

== ENCOUNTER 2019-04-24 09:28 | Emergency (ER) | payer MEDICARE, OTHER ==
[2008-07-07 12:36] VITALS: BP 137/59
[~2019-04-24] VITALS: Ht 180.3 cm; Wt 90.9 kg
[2019-04-24 09:39] VITALS: TEMP 98.7
[2019-04-24 10:18] LABS: BASO # 0.1 (0.0-0.2); BASO % 0.8 % (0.0-2.0); EOS # 1.3 (0.0-0.7); EOS % 12.1 % (0-4.0); GRAN # 7.8 (1.4-6.5); GRAN % 72.2 % (42.2-75.2); LYMPH # 0.8 (1.2-3.4); MEAN CELL VOLUME 80 fl (80.0-100.0); MEAN CORPUSCULAR HGB CONC 31 g/dl (33.0-37.0); MEAN PLATELET VOLUME 9.3 fl (7.4-10.4); MONO # 0.8 (0.1-0.6); MONO % 7.5 % (1.7-9.3); PLATELET COUNT 393 K/mm3 (130-400); RED BLOOD COUNT 3.72 M/mm3 (4.20-5.60); REDCELL DISTRIBUTION WIDTH-CV 17.2 % (11.5-14.5)
[2019-04-24 10:23] LABS: HEMATOCRIT 29.7 % (42.0-52.0); HEMOGLOBIN 9.1 g/dl (13.5-18.0); MEAN CORPUSCULAR HEMOGLOBIN 24 pg (27.0-31.0)
[2019-04-24 10:28] LABS: INR 2.7 (0.8-3.0)
[2019-04-24 10:30] LABS: BILIRUBIN,TOTAL 0.9 mg/dL (0.0-1.0); CALCIUM 9.2 mg/dL (8.4-10.2); CREATININE, serum 1.58 (0.66-1.25); TOTAL PROTEIN 7.5 gm/dL (6.4-8.2)
[2019-04-24 10:40] LABS: TROPONIN-I 0.024 ng/mL (0.000-0.035)
--- NOTE | 2019-04-24 11:35 | NUR ---
PATIENT WALKED AROUND NURSES STATION TWICE AND USED THE RESTROOM PATIENT SATS MID TO HIGH 90'S THE WHOLE TIME.
[2019-04-24] MEDS ORDERED: PREDNISONE20 MG PO (12:58)
[2019-04-24 13:33] VITALS: BP 175/102; PULSE 81
== END 2019-04-24 13:33 | disposition home or self-care (01) ==
LOC: COL.ER 09:28
PROVIDERS: Emergency Medicine
DX: I50.9 Heart failure, unspecified (principal); I25.10 Atherosclerotic heart disease of native coronary artery without angina pectoris; J44.9 Chronic obstructive pulmonary disease, unspecified; I48.91 Unspecified atrial fibrillation; Z87.891 Personal history of nicotine dependence; Z79.82 Long term (current) use of aspirin
CPT/HCPCS: J1940; J2930

== ENCOUNTER 2019-05-22 19:13 | Emergency (ER) | payer MEDICARE, OTHER ==
[2008-07-07 12:36] VITALS: BP 137/59
[~2019-05-22] VITALS: Ht 180.3 cm; Wt 90.9 kg
[2019-05-22 19:29] VITALS: TEMP 100.9
[2019-05-22 20:07] LABS: MEAN CELL VOLUME 78 fl (80.0-100.0); MEAN CORPUSCULAR HGB CONC 30 g/dl (33.0-37.0); MEAN PLATELET VOLUME 9.8 fl (7.4-10.4); PLATELET COUNT 320 K/mm3 (130-400); RED BLOOD COUNT 4.15 M/mm3 (4.20-5.60); REDCELL DISTRIBUTION WIDTH-CV 16.4 % (11.5-14.5)
[2019-05-22 20:21] LABS: HEMATOCRIT 32.2 % (42.0-52.0); HEMOGLOBIN 9.8 g/dl (13.5-18.0); MEAN CORPUSCULAR HEMOGLOBIN 24 pg (27.0-31.0)
[2019-05-22 20:27] LABS: ALBUMIN 3.8 gm/dL (3.5-5.0); BILIRUBIN,TOTAL 0.9 mg/dL (0.0-1.0); CALCIUM 9.4 mg/dL (8.4-10.2); CREATININE, serum 2.9 (0.66-1.25); POTASSIUM 4.1 mmol/L (3.4-5.0)
[2019-05-22 20:41] LABS: BAND 28 % (0-10); LYMPHOCYTE 2 % (20.0-51.0); METAMYELOCYTE 1 % (0-0); MICROCYTOSIS 1+; MYELOCYTE 4 % (0-0); NEUTROPHILS 63 % (42.0-75.2); PLATELET ESTIMATE NORMAL (NORMAL)
[2019-05-22 20:42] LABS: ANISOCYTOSIS 1+; HYPOCHROMIA 3+; POIKILOCYTOSIS 1+
[2019-05-22 20:45] LABS: TROPONIN-I 0.171 ng/mL (0.000-0.035)
[2019-05-22 22:58] LABS: COLLECTION METHOD CLEAN CATCH
[2019-05-22 23:11] LABS: PH 6 (5-8); SQUAMOUS EPITHELIAL 0-2 /hpf; URINE APPEARANCE Clear; URINE BACTERIA None Seen /hpf; URINE BILIRUBIN Negative (NEGATIVE); URINE BLOOD Negative (NEGATIVE); URINE COLOR Yellow; URINE GLUCOSE Negative (NEGATIVE); URINE KETONE Negative (NEGATIVE); URINE LEUKOCYTE ESTERASE Negative (NEGATIVE); URINE NITRATE Negative (NEGATIVE); URINE PROTEIN(semi-quant) 1+ (NEGATIVE); URINE RBC 0-2 /hpf; URINE UROBILINOGEN Negative (NEGATIVE)
[2019-05-23 00:34] VITALS: BP 118/59; PULSE 77
== END 2019-05-23 00:34 | disposition short-term general hospital (02) ==
LOC: COL.ER 19:13
PROVIDERS: Emergency Medicine
DX: I21.4 Non-ST elevation (NSTEMI) myocardial infarction (principal); A41.9 Sepsis, unspecified organism; N17.9 Acute kidney failure, unspecified; I25.10 Atherosclerotic heart disease of native coronary artery without angina pectoris; I11.0 Hypertensive heart disease with heart failure; I50.9 Heart failure, unspecified; I73.9 Peripheral vascular disease, unspecified; E78.5 Hyperlipidemia, unspecified; J44.9 Chronic obstructive pulmonary disease, unspecified; Z95.2 Presence of prosthetic heart valve; Z79.01 Long term (current) use of anticoagulants; Z79.82 Long term (current) use of aspirin; Z87.891 Personal history of nicotine dependence
CPT/HCPCS: J0696; J2543; J3370; J7030; J7050

== ENCOUNTER → 2019-07-01 | Outpatient (CLI) | payer MEDICARE, OTHER | LOC: COL.VAS 10:32 | DX: I08.1 Rheumatic disorders of both mitral and tricuspid valves (principal); Z95.2 Presence of prosthetic heart valve ==

== ENCOUNTER 2019-08-06 16:17 | Inpatient (IN) | payer MEDICARE, OTHER ==
[2019-08-06] VITALS: BP 159/102; PULSE 75; TEMP 99.3
[~2019-08-06] VITALS: Ht 180.3 cm; Wt 85.5 kg
[2019-08-06 17:40] LABS: BASO # 0.1 (0.0-0.2); BASO % 0.6 % (0.0-2.0); EOS # 0.1 (0.0-0.7); EOS % 0.9 % (0-4.0); GRAN # 8.4 (1.4-6.5); GRAN % 85.5 % (42.2-75.2); HEMOGLOBIN 11.6 g/dl (13.5-18.0); LYMPH # 0.5 (1.2-3.4); LYMPH % 5.1 % (20.0-51.0); MEAN CELL VOLUME 86 fl (80.0-100.0); MEAN CORPUSCULAR HEMOGLOBIN 28 pg (27.0-31.0); MEAN CORPUSCULAR HGB CONC 32 g/dl (33.0-37.0); MEAN PLATELET VOLUME 8.6 fl (7.4-10.4); MONO # 0.8 (0.1-0.6); MONO % 7.6 % (1.7-9.3); PLATELET COUNT 338 K/mm3 (130-400); RED BLOOD COUNT 4.22 M/mm3 (4.20-5.60); REDCELL DISTRIBUTION WIDTH-CV 18.4 % (11.5-14.5)
[2019-08-06 17:49] LABS: ALBUMIN 3.7 gm/dL (3.5-5.0); BILIRUBIN,TOTAL 0.6 mg/dL (0.0-1.0); CALCIUM 9.1 mg/dL (8.4-10.2); CREATININE, serum 1.09 (0.66-1.25); POTASSIUM 4.5 mmol/L (3.4-5.0)
[2019-08-06 17:58] LABS: HEMATOCRIT 36.1 % (42.0-52.0)
[2019-08-06 18:00] LABS: TROPONIN-I 0.016 ng/mL (0.000-0.035)
[2019-08-06 18:01] LABS: INR 1.4 (0.8-3.0); PROTHROMBIN TIME 16.7 SECONDS (9.7-12.8)
[2019-08-06 18:04] LABS: PARTIAL THROMBOPLASTIN TIME 38.3 SECONDS (26.0-37.0)
[2019-08-06] MEDS ORDERED: PREDNISONE10 MG PO (18:18)
[2019-08-06] MEDS ORDERED: NATURAL IRON65 MG (18:19)
[2019-08-06] MEDS ORDERED: DOXYCYCLINE HY100 MG PO (18:20)
[2019-08-06] MEDS ORDERED: VTAMINC250TA (18:20)
[2019-08-06] MEDS ORDERED: ZYRTEC 10MG10 MG PO (18:20)
[2019-08-06] MEDS ORDERED: BENADRYL25 M2 PO (18:21)
[2019-08-06] MEDS ORDERED: CATAPRES 0.1MG0.1 MG PO (18:22)
[2019-08-06] MEDS ORDERED: TRIAMCINOLONE A15 G2 TP (18:26)
[2019-08-06 20:42] VITALS: BP 120/60; PULSE 74; TEMP 97.8
[2019-08-07] VITALS (415 sets, daily range): BP systolic 111–181; BP diastolic 35–114; PULSE 56–95; TEMP 97.4–99.3; O2SAT 65–100
--- NOTE | 2019-08-07 00:10 | NUR ---
PATIENT AWAKENS WITH HEADACHE, B/P ELEVATED, CARDENE DRIP BEGINS AGAIN,
[2019-08-07 05:12] LABS: BASO # 0.1 (0.0-0.2); BASO % 0.6 % (0.0-2.0); EOS # 0.2 (0.0-0.7); EOS % 2.2 % (0-4.0); GRAN # 8.9 (1.4-6.5); GRAN % 82.6 % (42.2-75.2); HEMOGLOBIN 11.2 g/dl (13.5-18.0); LYMPH # 0.6 (1.2-3.4); MEAN CELL VOLUME 87 fl (80.0-100.0); MEAN CORPUSCULAR HEMOGLOBIN 28 pg (27.0-31.0); MEAN CORPUSCULAR HGB CONC 32 g/dl (33.0-37.0); MEAN PLATELET VOLUME 8.8 fl (7.4-10.4); MONO # 0.9 (0.1-0.6); MONO % 7.9 % (1.7-9.3); PLATELET COUNT 333 K/mm3 (130-400); RED BLOOD COUNT 3.99 M/mm3 (4.20-5.60); REDCELL DISTRIBUTION WIDTH-CV 18.4 % (11.5-14.5)
[2019-08-07 05:13] LABS: HEMATOCRIT 34.6 % (42.0-52.0)
[2019-08-07 05:25] LABS: CALCIUM 8.5 mg/dL (8.4-10.2); POTASSIUM 4.2 mmol/L (3.4-5.0)
--- NOTE | 2019-08-07 07:30 | NUR ---
Bedside shift report received from LIBBY Robles. Patient is lying in bed in no apparent distress. Full assessment completed. Vital signs stable, cardene gtt assessed. Patient does seem to have labile blood pressures ranging from the 120's to the 160's systolic with no titrations to cardene gtt. Patient has no symptoms of hypertension, has no pain or headache at this time. Bed in lowest position. Side rails up x3. Call light within reach. Patient has several scattered scabs all over his body. He states he sees a flux tube attendant outpatient and has "salves" that he needs to put on but hasnt been. He is unsure of the name of the medications the flux tube attendant prescribed for his skin issues.
--- NOTE | 2019-08-07 09:34 | NUR ---
WILIAM met with the patient to discuss discharge plan. The patient lives in [place] with his , Renetta (ph#[phone]), and daughter, Nena. He reports independence with ADLs and has a walker that he uses when he goes outside. The patient's PCP is Dr. Jannette Randle and he receives his medications at [email or web address]. He reports no difficulties obtaining his meds. The patient does not have advanced directives in EMR, but he reports that he does have them completed and that Dr. Randle's office should have a copy of them. He states that his is his DPOA-HC. SW attempted to contact Dr. Randle's office to request a copy. SW left them a voicemail. The patient plans to return home with his family upon discharge. No other additional needs at this time.
--- NOTE | 2019-08-07 11:00 | NUR ---
Cardene gtt placed on standby at this time and oral meds given per physician orders. Patient has no complaints or concerns at this time.
--- NOTE | 2019-08-07 19:33 | NUR ---
Patient has had no acute changes throughout the shift. Vital signs stable with labile blood pressures, but patient remains asymptopmatic throughout entire shift. Bedside shift report given to LIBBY Robles. Patient has no complaints or concerns at this time. Call light within reach. Bed in lowest position. Side rails up x3. Care handed over at this time.
[2019-08-08] VITALS (238 sets, daily range): BP systolic 141–197; BP diastolic 75–117; PULSE 62–77; TEMP 97.8–98.1; O2SAT 42–100
--- NOTE | 2019-08-08 07:51 | NUR ---
Pt assessment complete. Pt is sitting up on the side of the bed this am. He is A/O x4. His breathing is even and unlabored on RA. Pt denies any pain. No ANDREW this morning, denies dizziness or vision changes. Elevated BP, will reassess, morning BP meds administered. Pt denies N/V. Food at bedside. Pt denies any further needs, call light within reach. Will continue to monitor.
[2019-08-08] MEDS ORDERED: LOPRESSOR100 MG PO (11:57)
[2019-08-08] MEDS ORDERED: PROCARDIA XL 3030 MG PO (14:17)
[2019-08-08] MEDS ORDERED: BYSTOLIC20 MG PO (14:25)
--- NOTE | 2019-08-08 15:05 | NUR ---
Discharge instructions and paperwork reviewed with patient. All questions answered at this time. IV to LFA dc'd catheter tip intact. Pt wheeled out of facility by nurse.
== END 2019-08-08 15:26 | disposition home or self-care (01) | DRG 305 ==
LOC: COL.ER 16:17 → EU 18:05
PROVIDERS: Emergency Medicine; Nurse Practitioner Family; ADMIT Internal Medicine
DX: I16.0 Hypertensive urgency (principal); I50.32 Chronic diastolic (congestive) heart failure; E87.1 Hypo-osmolality and hyponatremia; I48.20 Chronic atrial fibrillation, unspecified; I13.0 Hypertensive heart and chronic kidney disease with heart failure and stage 1 through stage 4 chronic kidney disease, or unspecified chronic kidney disease; N18.9 Chronic kidney disease, unspecified; R51 Headache; J44.9 Chronic obstructive pulmonary disease, unspecified; I25.10 Atherosclerotic heart disease of native coronary artery without angina pectoris; R73.9 Hyperglycemia, unspecified; I34.0 Nonrheumatic mitral (valve) insufficiency; I73.9 Peripheral vascular disease, unspecified; E78.5 Hyperlipidemia, unspecified; Z95.2 Presence of prosthetic heart valve; Z95.0 Presence of cardiac pacemaker; Z87.891 Personal history of nicotine dependence; Z95.818 Presence of other cardiac implants and grafts
CPT/HCPCS: 99222-AI; 99233-AI; 99239; J2270; J2405; J7030; J7050

== ENCOUNTER → 2019-09-03 | Outpatient (CLI) | payer MEDICARE, OTHER ==
[~2019-09-03] MED LIST changes: +BENADRYL25 M2 PO; +BYSTOLIC20 MG PO; +DOXYCYCLINE HY100 MG PO; +NATURAL IRON65 MG; +PROCARDIA XL 3030 MG PO; +TRIAMCINOLONE A15 G2 TP; +VTAMINC250TA; +ZYRTEC 10MG10 MG PO
== END ==
LOC: COL.RAD 08:32
DX: M51.36 Other intervertebral disc degeneration, lumbar region (principal); M48.061 Spinal stenosis, lumbar region without neurogenic claudication; M41.86 Other forms of scoliosis, lumbar region

== ENCOUNTER → 2019-09-30 | Outpatient (CLI) | payer MEDICARE, OTHER ==
[2008-07-07 12:36] VITALS: BP 137/59
--- NOTE | 2019-09-25 08:23 | NUR ---
PT STATES HE WILL CALL BACK
[~2019-09-30] VITALS: Ht 180.3 cm; Wt 87.2 kg
[~2019-09-30] MED LIST changes: +ADALAT CC30 MG PO; +ATARAX 25MG25 MG/TAB PO; +BYSTOLIC10 MG PO; +DULCOLAX STOOL100 MG PO; -NATURAL IRON65 MG; +NATURAL IRON65 MG PO; -VTAMINC250TA; +VTAMINC250TA PO
[2019-09-30 12:41] VITALS: BP 129/72; PULSE 91
[2019-09-30 13:55] VITALS: BP 155/83; PULSE 76
== END ==
LOC: COL.RAD 12:20
DX: M51.36 Other intervertebral disc degeneration, lumbar region (principal)
CPT/HCPCS: J3301

== ENCOUNTER → 2019-10-29 | Outpatient (CLI) | payer MEDICARE, OTHER ==
[2008-07-07 12:36] VITALS: BP 137/59
[~2019-10-29] VITALS: Ht 180.3 cm; Wt 92.1 kg
[2019-10-29 09:38] VITALS: BP 144/80; PULSE 97
[2019-10-29 10:20] VITALS: BP 129/81; PULSE 86
== END ==
LOC: COL.RAD 09:23
DX: M51.36 Other intervertebral disc degeneration, lumbar region (principal)
CPT/HCPCS: J3301

== ENCOUNTER 2020-01-07 18:28 | Observation (INO) | payer MEDICARE, OTHER ==
[~2020-01-07] VITALS: Ht 180.3 cm; Wt 94.8 kg
[~2020-01-07 18:28] MED LIST changes: +CEFTIN500 MG PO; +LASIX 40MG TABL40 MG PO; +SENNA-S 50 MG-81 TAB PO
[2020-01-07 19:29] VITALS: BP 141/70; PULSE 74; TEMP 98.8
[2020-01-07 20:45] LABS: HEMOGLOBIN 11.5 g/dl (13.5-18.0); INR 1.5 (0.8-3.0); MEAN CELL VOLUME 88 fl (80.0-100.0); MEAN CORPUSCULAR HEMOGLOBIN 29 pg (27.0-31.0); MEAN CORPUSCULAR HGB CONC 33 g/dl (33.0-37.0); MEAN PLATELET VOLUME 8.6 fl (7.4-10.4); PLATELET COUNT 679 K/mm3 (130-400); PROTHROMBIN TIME 16.4 SECONDS (9.7-12.8); RED BLOOD COUNT 3.97 M/mm3 (4.20-5.60); REDCELL DISTRIBUTION WIDTH-CV 13.8 % (11.5-14.5)
[2020-01-07 20:46] LABS: C-REACTIVE PROTEIN 3.1 mg/dL (0.0-0.9); CALCIUM 8.9 mg/dL (8.4-10.2); CREATININE, serum 1.35 (0.66-1.25)
[2020-01-07 20:51] LABS: HEMATOCRIT 34.9 % (42.0-52.0)
[2020-01-07 20:56] LABS: TROPONIN-I 0.013 ng/mL (0.000-0.035)
[2020-01-07] MEDS ORDERED: DAPSONE 25MG TA25 MG PO (22:34)
[2020-01-07] MEDS ORDERED: ZYRTEC 10MG10 MG PO (22:34)
[2020-01-07] MEDS ORDERED: DOXYCYCLINE 10100 MG PO (22:35)
[2020-01-07 22:37] LABS: EOSINOPHIL 1 % (0-4); LYMPHOCYTE 5 % (20.0-51.0); MYELOCYTE 2 % (0-0); NEUTROPHILS 79 % (42.0-75.2); PLATELET ESTIMATE NORMAL (NORMAL)
[2020-01-07 22:38] LABS: ERYTHROCYTE SEDIMENTATION RATE 46 mm/hr (0-30)
--- NOTE | 2020-01-07 23:10 | NUR ---
Patient noted to have multiple stages of wounds over entire body. Wounds are noted to be anywhere from blisters to escoriation. The majority of the wounds are located on bilateral legs, bilateral arms, over entire chest, and on his back. Patient states his legs itch and are more painful than the rest of his body. Dressings intact to upper extremities. Vaseline gauze and kerlix applied to bilateral legs. All extremities have weeping wounds. His chest doesn't appear to be weeping at this time. Dr. Vogt notified of wounds and ordered to put vaseline gauze on wounds and cover them. Will continue to monitor.
[2020-01-07 23:54] VITALS: BP 151/69; PULSE 84; TEMP 99.2
[2020-01-08 04:00] VITALS: BP 151/72; PULSE 101; TEMP 99.1
--- NOTE | 2020-01-08 05:18 | NUR ---
Patient has rested well throughout the night. Dr. Vogt notified that patient had arrived and order for vaseline gauze obtained for dressing change. At about midnight patient complained of itching to wounds. Dr. Vogt notified and ordered Benadryl 50mg PO. Bilateral upper arms are covered with kerlix and no drainage noted. On right thigh, multiple blisters noted along with excoriated areas. A couple of these areas are weeping. Dressed with vaseline gauze and kerlix. On the back of left knee, multiple blisters and escoriated areas present as well. Minimal amount of weeping noted. Dressed as above. Patient's left lower arm is covered with the blisters and escoriated areas as well, but these are closed/healing. No dressing needed yet. Left upper arm is covered with kerlix and patient states it has vaseline gauze underneath per his wound care office orders. Right lower arm has minimal blisters present, but the upper arm is also covered with dressing. Patient's entire chest is covered with escoriated areas. Minimal blisters noted. Patient denies pain to areas, unless we are pushing on them. Patient utlizes urinal. IVF are running to right forearm, in which a 20G was placed. Will continue to monitor patient.
--- NOTE | 2020-01-08 08:00 | NUR ---
PATIENT IS A&O. VSS. TELE INPLACE WITH A-FIB HX. C/O MILD DISCOMFORT ASSOCIATED WITH BLISTERS. 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 BUE & BLE HAS MANY OF THE OPEN BLISTERS THAT ARE WEAPING COVERED WITH VASCILINE GAUZE & KERLIX DSG. PATIENT STATES HE HAS NEVER HAD BLISTERS THIS BAD BEFORE BUT HAS BEEN SEPTIC ABOUT 5-6 MONTHS AGO. BLOOD CULTURES PENDING. PATIENT ALSO HAS A HX OF PACER, WHERE MANY OF THE BLISTERS SURROUND. CARDIOLOGY IS CONCERNED ABOUT INFECTION GETTING INTO THE POCKET OF THE PACEMAKER. CARDIOLOGY BOTTOM SANDER AT BEDSIDE. PATIENT GIVEN PRN BENADRYL WITH AM MEDS DUE TO ITCHING. TOLERATING AHA DIET. NO C/O N/V. HEAD TO TOE ASSESSMENT COMPLETE. PATIENT RESTING IN BED. CALL LIGHT IN REACH.
[2020-01-08 08:06] VITALS: BP 144/57; PULSE 74; TEMP 98.6
[2020-01-08 11:55] VITALS: BP 140/71; PULSE 84; TEMP 98.3
--- NOTE | 2020-01-08 13:40 | NUR ---
STILL WAITING ON BED PLACEMENT FOR SIVAKUMAR.
--- NOTE | 2020-01-08 15:00 | NUR ---
REPORTED OFF TO LIBBY GREGORY
[2020-01-08 15:04] VITALS: BP 123/54; PULSE 78; TEMP 98.2
--- NOTE | 2020-01-08 15:10 | NUR ---
Report from LIBBY Chang
--- NOTE | 2020-01-08 15:15 | NUR ---
The patient is awaiting a bed to be able to transfer to [facility]. SW met with the patient to complete an intake. The patient lives in [place] with his , Renetta and their daughter, Nena. The patient uses oxygen at night, PRN. The patient is independent with ADLs and never has had HHS. The patient's PCP is Dr. Randle and patient receives medications from [facility] with no difficulties. The patient has advanced directives in the EMR. The patient has not concerns at this time and is awaiting a bed at [facility]. There are no additional needs at this time.
--- NOTE | 2020-01-08 17:34 | NUR ---
Patient laying in bed watching TV. A&Ox3. VSS. IV CDI. No complaints of pain, has discomfort r/t blisters on skin. Patient waiting on transfer to [facility]. No further needs expressed from the patient. Call light within reach
== END 2020-01-08 19:00 | disposition short-term general hospital (02) ==
LOC: JCC 18:28
PROVIDERS: ADMIT Internal Medicine Interventional Cardiology
DX: L12.0 Bullous pemphigoid (principal); L02.219 Cutaneous abscess of trunk, unspecified; I25.10 Atherosclerotic heart disease of native coronary artery without angina pectoris; I10 Essential (primary) hypertension; I48.0 Paroxysmal atrial fibrillation; I49.3 Ventricular premature depolarization; I73.9 Peripheral vascular disease, unspecified; I08.3 Combined rheumatic disorders of mitral, aortic and tricuspid valves; F17.210 Nicotine dependence, cigarettes, uncomplicated; Z95.0 Presence of cardiac pacemaker; Z79.899 Other long term (current) drug therapy; Z79.82 Long term (current) use of aspirin; Z79.01 Long term (current) use of anticoagulants; Z86.73 Personal history of transient ischemic attack (TIA), and cerebral infarction without residual deficits; Z95.2 Presence of prosthetic heart valve; Z88.8 Allergy status to other drugs, medicaments and biological substances; Z95.5 Presence of coronary angioplasty implant and graft
CPT/HCPCS: G0378; J7030

== ENCOUNTER 2020-04-20 23:43 | Emergency (ER) | payer MEDICARE, OTHER ==
[2008-07-07 12:36] VITALS: BP 137/59
[~2020-04-20] VITALS: Ht 180.3 cm; Wt 95.5 kg
[~2020-04-20 23:43] MED LIST changes: +DAPSONE 25MG TA25 MG PO
[2020-04-20 23:48] VITALS: BP 161/73; TEMP 98.9
[2020-04-21 00:56] VITALS: PULSE 86
== END 2020-04-21 01:00 | disposition home or self-care (01) ==
LOC: COL.ER 23:43
DX: L12.0 Bullous pemphigoid (principal); R58 Hemorrhage, not elsewhere classified; I48.91 Unspecified atrial fibrillation; I10 Essential (primary) hypertension; Z87.891 Personal history of nicotine dependence; Z79.52 Long term (current) use of systemic steroids; Z79.82 Long term (current) use of aspirin; Z79.01 Long term (current) use of anticoagulants

== ENCOUNTER → 2020-04-30 | Outpatient (CLI) | payer MEDICARE, OTHER ==
[2020-04-30 18:25] VITALS: PULSE 100
== END ==
LOC: COL.ER 18:13
DX: Z48.02 Encounter for removal of sutures (principal)

== ENCOUNTER 2020-06-12 15:44 | Emergency (ER) | payer MEDICARE, OTHER ==
[2008-07-07 12:36] VITALS: BP 137/59
[~2020-06-12] VITALS: Ht 180.3 cm; Wt 84.1 kg
[2020-06-12 15:50] VITALS: TEMP 99.4
[2020-06-12 16:59] VITALS: BP 164/75; PULSE 59
== END 2020-06-12 17:00 | disposition home or self-care (01) ==
LOC: COL.ER 15:44
DX: S01.311A Laceration without foreign body of right ear, initial encounter (principal); L12.0 Bullous pemphigoid; I48.91 Unspecified atrial fibrillation; L10.0 Pemphigus vulgaris; I25.10 Atherosclerotic heart disease of native coronary artery without angina pectoris; Z87.891 Personal history of nicotine dependence; X58.XXXA Exposure to other specified factors, initial encounter; Z86.73 Personal history of transient ischemic attack (TIA), and cerebral infarction without residual deficits; Z95.0 Presence of cardiac pacemaker; Z95.9 Presence of cardiac and vascular implant and graft, unspecified; Z79.01 Long term (current) use of anticoagulants; Z79.52 Long term (current) use of systemic steroids; Z79.82 Long term (current) use of aspirin

== ENCOUNTER 2021-09-07 18:35 | Inpatient (IN) | payer MEDICARE, OTHER ==
[2021-09-07] VITALS (89 sets, daily range): BP systolic 132; BP diastolic 74; PULSE 92; TEMP 98.1; O2SAT 95–100
[~2021-09-07] VITALS: Ht 180.3 cm; Wt 101.8 kg
[2021-09-07 20:13] LABS: BASO # 0.1 K/mm3 (0.0-0.2); EOS # 0.3 K/mm3 (0.0-0.7); EOS % 2.6 % (0.0-4.0); GRAN # 9.8 K/mm3 (1.4-6.5); GRAN % 84.2 % (42.2-75.2); LYMPH # 0.5 K/mm3 (1.2-3.4); LYMPH % 4.1 % (20.0-51.0); MEAN CELL VOLUME 87 fl (80.0-100.0); MEAN CORPUSCULAR HGB CONC 32 g/dl (33.0-37.0); MEAN PLATELET VOLUME 9.5 fl (7.4-10.4); MONO # 0.9 K/mm3 (0.1-0.6); MONO % 7.8 % (1.7-9.3); PLATELET COUNT 470 K/mm3 (130-400); RED BLOOD COUNT 3.24 M/mm3 (4.20-5.60); REDCELL DISTRIBUTION WIDTH-CV 14.6 % (11.5-14.5)
[2021-09-07 20:16] LABS: HEMATOCRIT 28.1 % (42.0-52.0); MEAN CORPUSCULAR HEMOGLOBIN 28 pg (27-31)
[2021-09-07 20:27] LABS: ALBUMIN 3.3 gm/dL (3.4-4.8); CALCIUM 8.4 mg/dL (8.4-10.2); CREATININE, serum 2.13 mg/dL (0.72-1.25); POTASSIUM 4.1 mmol/L (3.5-4.5); TOTAL PROTEIN 6.5 gm/dL (6.2-8.1)
[2021-09-07 20:33] LABS: TROPONIN-I 0.03 ng/mL (0.00-0.033)
[2021-09-07 23:12] LABS: INR 2.4 (0.8-3.0); PROTHROMBIN TIME 28.3 SECONDS (9.7-12.8)
[2021-09-07 23:15] LABS: PARTIAL THROMBOPLASTIN TIME 40.7 SECONDS (26.0-37.0)
[2021-09-07] MEDS ORDERED: CALCIUM 600MG+D1 TAB PO (23:22)
[2021-09-07] MEDS ORDERED: VITAMIND3 5000 PO (23:23)
[2021-09-07] MEDS ORDERED: BUMEX 1MG TA1 MG/TA1 PO (23:24)
[2021-09-07] MEDS ORDERED: PLAVIX 75MG TAB75 MG PO (23:25)
[2021-09-07] MEDS ORDERED: FLOVENT DI100 MCG/Ac IH (23:33)
[2021-09-08] VITALS (1173 sets, daily range): BP systolic 103–141; BP diastolic 54–111; PULSE 66–82; TEMP 97.4–98.9; O2SAT 81–100
[2021-09-08 01:11] LABS: HEMATOCRIT 25.3 % (42.0-52.0)
[2021-09-08 04:48] LABS: BASO # 0.1 K/mm3 (0.0-0.2); BASO % 0.8 % (0.0-2.0); EOS # 0.2 K/mm3 (0.0-0.7); EOS % 1.5 % (0.0-4.0); GRAN # 10.3 K/mm3 (1.4-6.5); LYMPH # 0.5 K/mm3 (1.2-3.4); LYMPH % 4.5 % (20.0-51.0); MEAN CELL VOLUME 88 fl (80.0-100.0); MEAN CORPUSCULAR HGB CONC 32 g/dl (33.0-37.0); MEAN PLATELET VOLUME 10.2 fl (7.4-10.4); MONO # 0.9 K/mm3 (0.1-0.6); MONO % 7.8 % (1.7-9.3); PLATELET COUNT 390 K/mm3 (130-400); RED BLOOD COUNT 2.84 M/mm3 (4.20-5.60); REDCELL DISTRIBUTION WIDTH-CV 14.7 % (11.5-14.5)
[2021-09-08 04:50] LABS: MEAN CORPUSCULAR HEMOGLOBIN 28 pg (27-31)
[2021-09-08 04:59] LABS: CREATININE, serum 2.03 mg/dL (0.72-1.25); POTASSIUM 4.7 mmol/L (3.5-4.5)
--- NOTE | 2021-09-08 10:26 | NUR ---
Child Care Attendant met with patient to discuss discharge planning. Patient lives in [place] with his , Renetta (ph#[phone]) and sees Dr. Randle for primary care. Patient obtains medications from [facility] or [facility] in . Patient uses home oxygen from [place] [facility] and advised he also has a stair lift at home as his bathroom is on the second floor of his home. Patient reports independence with ADLS and plans to return home at time of discharge. Patient has Advance Directives in EMR which designate his , Renetta and daughter, Amanda. SW contacted Renetta to review discharge plan. Renetta advised plan will be for patient to return home and she has no concerns at this time. SW discussed PT/OT during rounds, however it was reported patient has been independent in his room. Discharge Plan: Home
--- NOTE | 2021-09-08 10:37 | NUR ---
Initial visit; Patient thanked Supervisor Gelatin Plant for looking in on him and offering God's blessings and after visiting emma Gusman thanked "Lowell" for his service and offered God's blessings. Supervisor Gelatin Plant will keep patient in her prayers.
[2021-09-08 18:14] LABS: HEMATOCRIT 24.3 % (42.0-52.0); HEMOGLOBIN 7.7 g/dl (13.5-18.0)
--- NOTE | 2021-09-08 19:42 | NUR ---
BEDSIDE SHIFT REPORT RECEIVED. PATIENT AWAKE, ALERT, AND ORIENTED. RESTING IN BED. NO CHANGES FROM PREVIOUSLY DOCUMENTED ASSESSMENT. PATIENT NOT IN ANY ACUTE DISTRESS. ALL SAFETY MEASURES MAINTAINED. PATIENT TO RECEIVE 1 UNIT OF PRBCS FOR A HGB 7.7. WILL CONTINUE TO MONITOR.
[2021-09-09] VITALS (519 sets, daily range): BP systolic 103–145; BP diastolic 49–92; PULSE 63–76; TEMP 97.4–98.1; O2SAT 73–100
[2021-09-09 01:45] LABS: HEMATOCRIT 26.4 % (42.0-52.0); HEMOGLOBIN 8.2 g/dl (13.5-18.0)
--- NOTE | 2021-09-09 06:09 | NUR ---
patient refusing scd's at this time despite education of importance of complicance for dvt prevention
--- NOTE | 2021-09-09 06:11 | NUR ---
PATIENT REMAINS ALERT, ORIENTED, AND RESTING COMFORTABLY IN BED. 1 UNIT OF PRBCS GIVEN OVERNIGHT PER MD FOR HGB <8.0. PATIENT HAD NUMEROUS BLOODY LIQUID BM'S OVERNIGHT. MOST RECENT HGB 8.2. BLOOD PRESSURES REMAINED STABLE THROUGHOUT SHIFT. PATIENT NO COMPLAINING OF ANY DISTRESS. ALL SAFETY MEASURES MAINTAINED. WILL CONTINUE TO MONITOR
[2021-09-09 06:12] LABS: BASO # 0.1 K/mm3 (0.0-0.2); BASO % 1.5 % (0.0-2.0); EOS # 0.3 K/mm3 (0.0-0.7); EOS % 4.4 % (0.0-4.0); GRAN # 5.5 K/mm3 (1.4-6.5); GRAN % 72.4 % (42.2-75.2); LYMPH # 0.8 K/mm3 (1.2-3.4); LYMPH % 10.7 % (20.0-51.0); MEAN CELL VOLUME 89 fl (80.0-100.0); MEAN CORPUSCULAR HGB CONC 31 g/dl (33.0-37.0); MEAN PLATELET VOLUME 9.4 fl (7.4-10.4); MONO # 0.8 K/mm3 (0.1-0.6); MONO % 10.6 % (1.7-9.3); PLATELET COUNT 356 K/mm3 (130-400); REDCELL DISTRIBUTION WIDTH-CV 14.6 % (11.5-14.5)
[2021-09-09 06:15] LABS: HEMATOCRIT 28.4 % (42.0-52.0); HEMOGLOBIN 8.9 g/dl (13.5-18.0); MEAN CORPUSCULAR HEMOGLOBIN 28 pg (27-31)
[2021-09-09 06:19] LABS: PROTHROMBIN TIME 22.6 SECONDS (9.7-12.8)
[2021-09-09 06:28] LABS: CALCIUM 7.9 mg/dL (8.4-10.2); CREATININE, serum 2.15 mg/dL (0.72-1.25); MAGNESIUM 1.9 mg/dL (1.6-2.6); POTASSIUM 4.7 mmol/L (3.5-4.5)
--- NOTE | 2021-09-09 08:45 | NUR ---
Patient awake and alert resting in bed. Denies any shortness of breath, dizziness or chest pain. Call light left within reach; will continue to monitor.
--- NOTE | 2021-09-09 23:30 | NUR ---
pt transferred from ICU to room 353 per WC accompanied by RN, awake and alert, ambulates well with SBA. x2 INTs present in rt arm and hand, sites flushed prior to restarting fluids, both sites leaking, dc'd both sites, new site placed in right shoulder area after 5 attempts. IVF infusing @60cc/hr. pt having numerous clear to yellow liquid stools. currently on 2L O2 per NC.
[2021-09-10 00:37] VITALS: BP 152/76; PULSE 84; TEMP 97.8
[2021-09-10 04:52] VITALS: BP 123/70; PULSE 78; TEMP 97.7
[2021-09-10 06:17] LABS: BASO # 0.1 K/mm3 (0.0-0.2); BASO % 1.2 % (0.0-2.0); EOS # 0.3 K/mm3 (0.0-0.7); GRAN # 8.6 K/mm3 (1.4-6.5); GRAN % 77.4 % (42.2-75.2); LYMPH # 0.7 K/mm3 (1.2-3.4); LYMPH % 6.5 % (20.0-51.0); MEAN CELL VOLUME 89 fl (80.0-100.0); MEAN CORPUSCULAR HGB CONC 32 g/dl (33.0-37.0); MEAN PLATELET VOLUME 10.1 fl (7.4-10.4); MONO # 1.3 K/mm3 (0.1-0.6); MONO % 11.4 % (1.7-9.3); RED BLOOD COUNT 3.22 M/mm3 (4.20-5.60)
[2021-09-10 06:25] LABS: HEMATOCRIT 28.8 % (42.0-52.0); HEMOGLOBIN 9.1 g/dl (13.5-18.0); MEAN CORPUSCULAR HEMOGLOBIN 28 pg (27-31)
[2021-09-10 06:26] LABS: PLATELET COUNT 502 K/mm3 (130-400)
[2021-09-10 06:35] LABS: CALCIUM 7.6 mg/dL (8.4-10.2); CREATININE, serum 2.31 mg/dL (0.72-1.25); MAGNESIUM 1.8 mg/dL (1.6-2.6); POTASSIUM 4.6 mmol/L (3.5-4.5)
[2021-09-10 07:57] VITALS: BP 141/77; PULSE 82; TEMP 98
--- NOTE | 2021-09-10 12:04 | NUR ---
PATIENT VERY ACTIVE IN BED, AND IN ROOM TO AND FROM BATHROOM (PER PATIENT) OVERNIGHT. BOWEL PREP COMPLETED. EGD AND COLONOSCOPY TODAY SCHEDULED AT 1240. 2L O2 NC, PATIENT REPORTS THAT IS HIS BASELINE, WITH TREATMENT PROVIDED FROM [facility]. EQUAL STEAM TABLE ATTENDANT, SLIGHTLY WEAK. SAT UP AND STOOD EDGE OF BED, NO ORTHOSTATICS, NO CONCERNS FOR FALL. TOOK MORNING MEDS WITH 120ML OF WATER. PATIENT STATES NO BLEEDING BOWEL MOVEMENTS SINCE MIDNIGHT. NO COMPLAINTS OF PAIN. NO CONCERNS AT THIS TIME FOR PATIENT. PATIENT VERY VOCAL ABOUT GOING HOME AFTER PROCEDURES/TESTING. WILL FOLLOW-UP WITH PROVIDERS.
[2021-09-10 12:11] VITALS: BP 136/72; PULSE 80; TEMP 97.7
[2021-09-10 16:30] VITALS: BP 131/67; PULSE 74
[2021-09-10] MEDS ORDERED: MONODOX100 PO (17:10)
[2021-09-10] MEDS ORDERED: PROTONIX 40MG T40 MG PO (17:15)
--- NOTE | 2021-09-10 19:54 | NUR ---
PATIENT TOLERATED POST PROCEDURE WELL, RECOVERED FULL AXO IN 20-30 MINUTES. TOLERATED GENERAL DIET. REQUESTED PROVIDER DISCUSSION TO EVALUATE DISCHARGE HOME TODAY. PATIENT ORDERS GIVEN, IV DISCONTINUED, TELE REMOVED. EDUCATION AND DISCHARGE INSTRUCTIONS PROVIDED TO PATIENT AND PATIENT . PER PATIENT DAUGHTER GIVEN INFORMATION ON PLAN AND DISCHARGE INSTRUCTIONS. NO CONCERNS AT THIS TIME.
== END 2021-09-10 20:00 | disposition home or self-care (01) | DRG 377 ==
LOC: COL.ER 18:35 → ICU 21:31 → MEDICAL 21:31 → EDBEDREQ 21:42 → MEDICAL 09-09 22:19
PROVIDERS: Emergency Medicine; Internal Medicine; Internal Medicine Gastroenterology; Student in an Organized Health Care Education/Training Program; ADMIT Student in an Organized Health Care Education/Training Program
PROC: 0W3P8ZZ Control Bleeding in Gastrointestinal Tract, Via Natural or Artificial Opening Endoscopic (ICD-10-PCS; principal; 2021-09-10 12:30)
PROC: 0DJD8ZZ Inspection of Lower Intestinal Tract, Via Natural or Artificial Opening Endoscopic (ICD-10-PCS; 2021-09-10 12:30)
DX: K31.811 Angiodysplasia of stomach and duodenum with bleeding (principal); J96.01 Acute respiratory failure with hypoxia; J18.9 Pneumonia, unspecified organism; I50.33 Acute on chronic diastolic (congestive) heart failure; I13.0 Hypertensive heart and chronic kidney disease with heart failure and stage 1 through stage 4 chronic kidney disease, or unspecified chronic kidney disease; D62 Acute posthemorrhagic anemia; J44.0 Chronic obstructive pulmonary disease with (acute) lower respiratory infection; K57.30 Diverticulosis of large intestine without perforation or abscess without bleeding; E78.5 Hyperlipidemia, unspecified; N18.30 Chronic kidney disease, stage 3 unspecified; I25.10 Atherosclerotic heart disease of native coronary artery without angina pectoris; I48.91 Unspecified atrial fibrillation; I27.20 Pulmonary hypertension, unspecified; I73.9 Peripheral vascular disease, unspecified; I34.0 Nonrheumatic mitral (valve) insufficiency; G25.81 Restless legs syndrome; K21.9 Gastro-esophageal reflux disease without esophagitis; K22.70 Barrett's esophagus without dysplasia; K63.9 Disease of intestine, unspecified; Z20.822 Contact with and (suspected) exposure to COVID-19; Z79.01 Long term (current) use of anticoagulants; Z79.02 Long term (current) use of antithrombotics/antiplatelets; Z79.82 Long term (current) use of aspirin; Z86.73 Personal history of transient ischemic attack (TIA), and cerebral infarction without residual deficits; Z95.5 Presence of coronary angioplasty implant and graft; Z95.0 Presence of cardiac pacemaker; Z95.4 Presence of other heart-valve replacement; Z87.891 Personal history of nicotine dependence
CPT/HCPCS: 99223-AI; 99232-AI; 99233-AI; 99239; C9113; J0696; J2405; J2704; J2765; J7030; P9016

== ENCOUNTER 2021-09-12 18:37 | Inpatient (IN) | payer MEDICARE, OTHER ==
[~2021-09-12] VITALS: Ht 180.3 cm; Wt 103.4 kg
[~2021-09-12 18:37] MED LIST changes: +BUMEX 1MG TA1 MG/TA1 PO; +CALCIUM 600MG+D1 TAB PO; +FLOVENT DI100 MCG/Ac IH; +MONODOX100 PO; +PROTONIX 40MG T40 MG PO; +VITAMIND3 5000 PO
[2021-09-12 19:32] LABS: BASO # 0.2 K/mm3 (0.0-0.2); BASO % 1.3 % (0.0-2.0); EOS # 0.3 K/mm3 (0.0-0.7); EOS % 1.9 % (0.0-4.0); GRAN # 10.7 K/mm3 (1.4-6.5); GRAN % 79.2 % (42.2-75.2); LYMPH # 0.9 K/mm3 (1.2-3.4); LYMPH % 6.4 % (20.0-51.0); MEAN CELL VOLUME 90 fl (80.0-100.0); MEAN CORPUSCULAR HGB CONC 31 g/dl (33.0-37.0); MEAN PLATELET VOLUME 9.6 fl (7.4-10.4); MONO # 1.4 K/mm3 (0.1-0.6); MONO % 10.5 % (1.7-9.3); RED BLOOD COUNT 3.33 M/mm3 (4.20-5.60); REDCELL DISTRIBUTION WIDTH-CV 15.6 % (11.5-14.5)
[2021-09-12 19:37] LABS: HEMOGLOBIN 9.2 g/dl (13.5-18.0); MEAN CORPUSCULAR HEMOGLOBIN 28 pg (27-31); PLATELET COUNT 608 K/mm3 (130-400)
[2021-09-12 19:45] LABS: ALBUMIN 3.2 gm/dL (3.4-4.8); BILIRUBIN,TOTAL 1.5 mg/dL (0.2-1.2); C-REACTIVE PROTEIN 2.5 mg/dL (0.00-0.50); CALCIUM 7.6 mg/dL (8.4-10.2); CREATININE, serum 2.81 mg/dL (0.72-1.25); POTASSIUM 4.3 mmol/L (3.5-4.5); TOTAL PROTEIN 6.4 gm/dL (6.2-8.1)
[2021-09-12 19:54] LABS: TROPONIN-I 0.059 ng/mL (0.00-0.033)
[2021-09-12 20:55] LABS: COLLECTION METHOD CLEAN CATCH
[2021-09-12 21:09] LABS: MUCOUS Present (NOT PRESENT); PH 5 (5-8); SQUAMOUS EPITHELIAL 0-2 /hpf (0-10); URINE APPEARANCE Clear (CLEAR/HAZY); URINE BACTERIA None Seen /hpf (NONE SEEN); URINE BILIRUBIN Negative (NEGATIVE); URINE BLOOD Negative (NEGATIVE); URINE COLOR Yellow (YELLOW); URINE GLUCOSE Negative (NEGATIVE); URINE KETONE Negative (NEGATIVE); URINE LEUKOCYTE ESTERASE Negative (NEGATIVE); URINE NITRATE Negative (NEGATIVE); URINE PROTEIN(semi-quant) 1+ (NEGATIVE); URINE RBC 0-2 /hpf (0-2); URINE UROBILINOGEN Negative (NEGATIVE)
[2021-09-12] MEDS ORDERED: NEURONTIN300 MG/CAP PO (22:26)
[2021-09-12] MEDS ORDERED: FERGON240 MG PO (22:27)
[2021-09-12] MEDS ORDERED: DUPIXENT P300 MG/2 M (22:28)
[2021-09-12 23:00] VITALS: BP 132/69; PULSE 79; TEMP 97.5
[2021-09-13] VITALS (8 sets, daily range): BP systolic 101–134; BP diastolic 50–79; PULSE 62–98; TEMP 97.3–98
--- NOTE | 2021-09-13 02:10 | NUR ---
PT ARRIVED TO THE MEDICAL FLOOR AT 2240HRS TO ROOM 308. PT A&O X 4; VSS; O2 3L VIA NC. PT DENIED CHEST PAIN, GENERALIZED PAIN, PALPITATIONS, SOB, N,V,D OR DIZZINESS. PT DID COMPLAIN ABOUT HIS EYES BURNING. PT'S EYES DIDN'T LOOK RED OR IRRITATED, BUT DID LOOK A LITTLE TEARY. ADMISSIONS ASSESSMENT AND MED REC COMPLETE. PT ORIENTED TO ROOM AND HOSPITAL POLICY. POC DISCUSSED WITH PT. PT VERBALIZED UNDERSTANDING. PT EXPRESSED NO ADDITIONAL NEEDS AT THIS TIME. CALL LIGHT WITHIN REACH.
[2021-09-13 06:23] LABS: BASO # 0.1 K/mm3 (0.0-0.2); BASO % 1.3 % (0.0-2.0); EOS # 0.3 K/mm3 (0.0-0.7); EOS % 2.8 % (0.0-4.0); GRAN # 7.5 K/mm3 (1.4-6.5); GRAN % 74.5 % (42.2-75.2); LYMPH # 0.8 K/mm3 (1.2-3.4); LYMPH % 8.1 % (20.0-51.0); MEAN CELL VOLUME 88 fl (80.0-100.0); MEAN CORPUSCULAR HGB CONC 32 g/dl (33.0-37.0); MEAN PLATELET VOLUME 9.6 fl (7.4-10.4); MONO # 1.2 K/mm3 (0.1-0.6); MONO % 12.4 % (1.7-9.3); RED BLOOD COUNT 3.18 M/mm3 (4.20-5.60); REDCELL DISTRIBUTION WIDTH-CV 15.1 % (11.5-14.5)
[2021-09-13 06:27] LABS: HEMATOCRIT 28.1 % (42.0-52.0); HEMOGLOBIN 8.9 g/dl (13.5-18.0); MEAN CORPUSCULAR HEMOGLOBIN 28 pg (27-31)
[2021-09-13 06:30] LABS: PLATELET COUNT 471 K/mm3 (130-400)
[2021-09-13 06:37] LABS: ALBUMIN 2.9 gm/dL (3.4-4.8); BILIRUBIN,TOTAL 1.5 mg/dL (0.2-1.2); CALCIUM 7.4 mg/dL (8.4-10.2); CREATININE, serum 2.71 mg/dL (0.72-1.25); TOTAL PROTEIN 5.7 gm/dL (6.2-8.1)
--- NOTE | 2021-09-13 08:28 | NUR ---
Patient resting in bed upon entering the room. Patient does c/o dry eyes, requested some eye drops. Provider notified. Patient denies any other concerns. Call light is w/in reach, patient encouraged to call if any needs arise.
--- NOTE | 2021-09-13 09:21 | NUR ---
Initial visit; Patient thanked Wreath Maker for offering God's blessings and keeping him in her prayers. Patient states he is doing ok though not sleeping a lot.
--- NOTE | 2021-09-13 14:31 | NUR ---
SW met with patient to complete intake. Patient states that he lives with his Renetta [phone] in [place]. Patient states that he does not utilize DME and states that he is independent with ADL's. PCP is Dr. Randle, pharmacy is [facility]. Also provides that his DPOA/HC is his spouse. Patient states that his plan is to return to his home upon DC. SW will continue to follow. DC plan: home
--- NOTE | 2021-09-13 18:27 | NUR ---
Patient has rested a majority of the day. Did shower w/ his 's assistance. Patient denies any concerns. Daughter given an update.
--- NOTE | 2021-09-13 21:00 | NUR ---
Patient is resting in bed, alert and oriented x4, VSS. States headache, tylenol added to meds by hospitalist. Telemetry in place, paced. 2L O2 NC. Assessment completed, no other needs at this time. Call light within reach.
[2021-09-14] VITALS (11 sets, daily range): BP systolic 99–133; BP diastolic 37–69; PULSE 56–81; TEMP 97.1–98.1
--- NOTE | 2021-09-14 06:34 | NUR ---
Patient has had a calm night. He just asked for tylenol for headache. Intermitent sleep. Report will be given to day RN.
[2021-09-14 06:45] LABS: BASO # 0.1 K/mm3 (0.0-0.2); BASO % 1.1 % (0.0-2.0); EOS # 0.2 K/mm3 (0.0-0.7); EOS % 2.8 % (0.0-4.0); GRAN # 6.4 K/mm3 (1.4-6.5); GRAN % 76.7 % (42.2-75.2); LYMPH # 0.6 K/mm3 (1.2-3.4); LYMPH % 6.9 % (20.0-51.0); MEAN CELL VOLUME 88 fl (80.0-100.0); MEAN CORPUSCULAR HGB CONC 32 g/dl (33.0-37.0); MEAN PLATELET VOLUME 9.5 fl (7.4-10.4); MONO % 11.8 % (1.7-9.3); PLATELET COUNT 409 K/mm3 (130-400); RED BLOOD COUNT 3.11 M/mm3 (4.20-5.60); REDCELL DISTRIBUTION WIDTH-CV 15.1 % (11.5-14.5)
[2021-09-14 06:59] LABS: HEMATOCRIT 27.3 % (42.0-52.0); HEMOGLOBIN 8.6 g/dl (13.5-18.0); MEAN CORPUSCULAR HEMOGLOBIN 28 pg (27-31)
[2021-09-14 07:09] LABS: ALBUMIN 2.8 gm/dL (3.4-4.8); BILIRUBIN,TOTAL 1.5 mg/dL (0.2-1.2); CALCIUM 7.3 mg/dL (8.4-10.2); CREATININE, serum 2.68 mg/dL (0.72-1.25); POTASSIUM 4.2 mmol/L (3.5-4.5); TOTAL PROTEIN 5.5 gm/dL (6.2-8.1)
--- NOTE | 2021-09-14 08:40 | NUR ---
Scheduled medications given. Shift assessment preformed. Patient currently on RA. Dyspnea on exertion noted. Patient refusing SCD's, but is frequently ambulatory in room. VSS. Patient A&O. Aspirin not given per request of patient. Per patient he has a Hx of GI bleed and was taken off of all blood thinners. Patient denies any pain, discomfort, SOA, or further needs at this time. Bowel sounds hypoactive in all quadrants, abd firm. Patient reports that he had a BM last pm. Call light in reach.
--- NOTE | 2021-09-14 10:00 | NUR ---
Follow-up visit; Patient states he has been through a battery of testing and is waiting to hear the results so he can see what he is up against. He states he is still weak and not gaining weight. Patient thanked Sexual Assault Counselor for checking on him and keeping him in her prayers.
--- NOTE | 2021-09-14 18:16 | NUR ---
Patient c/o of a "floating" feeling when changing positions. Orthostatic vitals completed. Provider made aware of results. Patient output has been minimal this shift. Bladder scan completed, 122 ml residual noted. MARISSA Morin made aware of results. NS running as ordered. Patient has been c/o N/V. Has had two episodes of emesis this shift. PRN zofran given. Patient's ABD distended and firm. Bowel sound present. Patient has had 2 BM's this shift. VSS. Patient A&O. Patient currently resting in bed. Respirations even and unlabored. at the bedside.
--- NOTE | 2021-09-14 18:28 | NUR ---
Nadeen Yates contacted regarded emesis episodes and abd distention.
--- NOTE | 2021-09-14 20:00 | NUR ---
Patient is resting in bed, alert and oriented x 4, VSS. Continues with nausea. states he has not eating since breakfast. No emesis right now. Telemetry in place, RA. No other needs at thist time. Call light within reach.
[2021-09-15] VITALS (7 sets, daily range): BP systolic 94–123; BP diastolic 49–75; PULSE 57–103; TEMP 97.5–98.5
--- NOTE | 2021-09-15 05:30 | NUR ---
Patient has had a calm night. His BP continues soft. He is using 2L O2 NC. Report will be given to day RN.
[2021-09-15 06:41] LABS: BASO # 0.1 K/mm3 (0.0-0.2); EOS # 0.2 K/mm3 (0.0-0.7); EOS % 2.5 % (0.0-4.0); GRAN # 6.5 K/mm3 (1.4-6.5); LYMPH # 0.6 K/mm3 (1.2-3.4); LYMPH % 7.4 % (20.0-51.0); MEAN CELL VOLUME 90 fl (80.0-100.0); MEAN CORPUSCULAR HGB CONC 31 g/dl (33.0-37.0); MEAN PLATELET VOLUME 9.6 fl (7.4-10.4); MONO # 0.9 K/mm3 (0.1-0.6); MONO % 10.6 % (1.7-9.3); PLATELET COUNT 443 K/mm3 (130-400); RED BLOOD COUNT 3.35 M/mm3 (4.20-5.60); REDCELL DISTRIBUTION WIDTH-CV 15.2 % (11.5-14.5)
[2021-09-15 06:44] LABS: HEMOGLOBIN 9.3 g/dl (13.5-18.0); MEAN CORPUSCULAR HEMOGLOBIN 28 pg (27-31)
[2021-09-15 06:47] LABS: CALCIUM 7.8 mg/dL (8.4-10.2); CREATININE, serum 2.41 mg/dL (0.72-1.25); POTASSIUM 4.4 mmol/L (3.5-4.5)
--- NOTE | 2021-09-15 08:54 | NUR ---
Scheduled medications given. Shift assessment preformed. VSS. Patient A&O. Patient c/o headache rated a 2/10, PRN tylenol given. Patient c/o nausea, PRN zofran given. Patient encouraged to eat slowly and start with clear liquids. Jello, applesauce, and sprite given. Patient currently requiring 2L of O2 via nasal cannula. Denies any further pain, discomfort, SOA, or further needs at this time. Call light in reach.
--- NOTE | 2021-09-15 16:36 | NUR ---
Collaborated with the patient's RN on mobility. Patient is able to ambulate in room on his own. No OT/OT concerns reported.
--- NOTE | 2021-09-15 17:13 | NUR ---
Patient has had an ok day. VSS. Patient A&O. Has ambulated in room throughout the day. Good PO intake noted. Increase urine output noted this shift. Patient is currenlty resting in bed. Respirations even and unlabored. at the bedside. Call light in reach.
--- NOTE | 2021-09-15 21:00 | NUR ---
Patient is resting in bed watching TV. Alert and oriented x 4, VSS. Telemetry in place, paced. 1.5L O2 NC. Denies nausea at the moment. Asked for his eye drops. Assessment completed, medications provided. No other needs at this time. Call light within raech.
[2021-09-16 02:52] VITALS: BP 118/52; PULSE 78; TEMP 98.2
--- NOTE | 2021-09-16 05:58 | NUR ---
Patient is already awake in the chair watching TV. Continues with 2L O2. Denies chest pain. He had a calm night. Report will be given to day RN.
[2021-09-16 06:37] LABS: BASO # 0.1 K/mm3 (0.0-0.2); BASO % 0.9 % (0.0-2.0); EOS # 0.2 K/mm3 (0.0-0.7); GRAN # 6.9 K/mm3 (1.4-6.5); GRAN % 79.9 % (42.2-75.2); LYMPH # 0.6 K/mm3 (1.2-3.4); LYMPH % 6.7 % (20.0-51.0); MEAN CELL VOLUME 88 fl (80.0-100.0); MEAN CORPUSCULAR HGB CONC 31 g/dl (33.0-37.0); MEAN PLATELET VOLUME 9.7 fl (7.4-10.4); MONO # 0.9 K/mm3 (0.1-0.6); PLATELET COUNT 421 K/mm3 (130-400); RED BLOOD COUNT 3.35 M/mm3 (4.20-5.60); REDCELL DISTRIBUTION WIDTH-CV 15.1 % (11.5-14.5)
[2021-09-16 06:43] LABS: HEMATOCRIT 29.5 % (42.0-52.0); HEMOGLOBIN 9.2 g/dl (13.5-18.0); MEAN CORPUSCULAR HEMOGLOBIN 27 pg (27-31)
[2021-09-16 06:53] LABS: CREATININE, serum 2.35 mg/dL (0.72-1.25); POTASSIUM 4.7 mmol/L (3.5-4.5)
[2021-09-16 07:25] VITALS: BP 125/52; PULSE 77; TEMP 98.1
--- NOTE | 2021-09-16 08:58 | NUR ---
Patient laying in bed upon entering the room. States he had difficulty sleeping last night and was trying to catch up on rest. All morning medications administered and shift assessment complete. Patient denies any concerns this morning. Patient independent in the room, has call light w/in reach (encouraged to call if any needs arise).
--- NOTE | 2021-09-16 09:45 | NUR ---
Follow-up visit; Patient having difficulty sleeping, Sheet Sorter offered God's blessings and left him to try to rest.
[2021-09-16 11:50] VITALS: BP 130/58; PULSE 80; TEMP 98.2
[2021-09-16 15:39] VITALS: BP 135/65; PULSE 94; TEMP 98.1
--- NOTE | 2021-09-16 17:21 | NUR ---
Patient c/o nausea. PRN zofran given. Patient refusing any supper.
[2021-09-16 19:55] VITALS: BP 124/71; PULSE 79; TEMP 97.5
[2021-09-16 20:42] LABS: HEMOGLOBIN 9.4 g/dl (13.5-18.0); MEAN CELL VOLUME 85 fl (80.0-100.0); MEAN CORPUSCULAR HEMOGLOBIN 28 pg (27-31); MEAN CORPUSCULAR HGB CONC 32 g/dl (33.0-37.0); MEAN PLATELET VOLUME 9.3 fl (7.4-10.4); PLATELET COUNT 360 K/mm3 (130-400); REDCELL DISTRIBUTION WIDTH-CV 14.9 % (11.5-14.5)
[2021-09-16 23:40] VITALS: BP 105/61; PULSE 70; TEMP 98.5
[2021-09-17 03:55] VITALS: BP 122/54; PULSE 77; TEMP 98
[2021-09-17 05:55] VITALS: BP 116/55; PULSE 78
--- NOTE | 2021-09-17 06:20 | NUR ---
ASSESSMENT COMPLETE FOR THIS SHIFT. PT RESTING IN HIS RECLINER WATCHING TV. PT COMPLAINED OF LOOSE, BLOODY STOOLS. PT SAID HE WOULD LEAVE ME A SAMPLE. PT LEFT SAMPLE ON TOILET PAPER. SMALL AMOUNT OF BLOOD SEEN, MORE IN LINE WITH HEMORRHOIDS. HOSPITALIST CALLED. CBC AND STOOL SAMPLE ORDERED. Hbg HIGHER THAN LAST CBC. WILL CONTINUE TO MONITOR. PT DENIED PAIN, PALPITATIONS, SOB, N,V OR DIZZINESS. PT EXPRESSED NEED TO DISCHARGE TODAY, BECAUSE HE HAS TO GET TO THE BANK. PT EXPRESSED NO OTHER NEEDS AT THIS TIME. CALL LIGHT WITHIN REACH.
[2021-09-17 06:54] LABS: BASO # 0.1 K/mm3 (0.0-0.2); EOS # 0.2 K/mm3 (0.0-0.7); EOS % 2.1 % (0.0-4.0); GRAN # 6.3 K/mm3 (1.4-6.5); GRAN % 79.3 % (42.2-75.2); LYMPH # 0.4 K/mm3 (1.2-3.4); LYMPH % 5.1 % (20.0-51.0); MEAN CELL VOLUME 87 fl (80.0-100.0); MEAN CORPUSCULAR HGB CONC 31 g/dl (33.0-37.0); MEAN PLATELET VOLUME 9.7 fl (7.4-10.4); MONO % 12.1 % (1.7-9.3); PLATELET COUNT 410 K/mm3 (130-400); RED BLOOD COUNT 3.33 M/mm3 (4.20-5.60); REDCELL DISTRIBUTION WIDTH-CV 15.1 % (11.5-14.5)
[2021-09-17 07:02] LABS: HEMATOCRIT 29.1 % (42.0-52.0); HEMOGLOBIN 9.1 g/dl (13.5-18.0); MEAN CORPUSCULAR HEMOGLOBIN 27 pg (27-31)
[2021-09-17 07:16] LABS: ALBUMIN 3.2 gm/dL (3.4-4.8); BILIRUBIN,TOTAL 1.6 mg/dL (0.2-1.2); CALCIUM 8.1 mg/dL (8.4-10.2); CREATININE, serum 2.39 mg/dL (0.72-1.25); POTASSIUM 4.6 mmol/L (3.5-4.5); TOTAL PROTEIN 6.3 gm/dL (6.2-8.1)
[2021-09-17 07:34] VITALS: BP 129/57; PULSE 77; TEMP 97.8
[2021-09-17] MEDS ORDERED: FLOMAX 0.40.4 MG/CAP PO (08:33)
[2021-09-17] MEDS ORDERED: PLAVIX 75MG TAB75 MG PO (08:33)
--- NOTE | 2021-09-17 09:35 | NUR ---
Patient appears to be doing well this morning and remains adamant on discharging today. Hospitalist notified of this, and patient will be discharging home. Patient denies any concerns r/t his hospital stay, just has home concerns. All morning medications administered. Patient has call light w/in reach.
--- NOTE | 2021-09-17 10:07 | NUR ---
Patient ready for discharge. Patient's at bedside. Patient presented wth the [facility].Im form and education provided. Patient verbalized his agreement with discharge plan. Signed original placed in the patients chart and copy provided back to the patient. Discharge plan: Home
--- NOTE | 2021-09-17 10:41 | NUR ---
Patient discharged home. IV and telemetry removed by this RN. Patient had no concerns at the time of discharge. All education/instructions discussed w/ patient. Patient verbalized understanding and signed appropriate paperwork.
== END 2021-09-17 10:40 | disposition home or self-care (01) | DRG 683 ==
LOC: COL.ER 18:37 → MEDICAL 21:35
PROVIDERS: Nurse Practitioner; Physician Assistant; ADMIT Student in an Organized Health Care Education/Training Program
DX: N17.9 Acute kidney failure, unspecified (principal); I50.32 Chronic diastolic (congestive) heart failure; I13.0 Hypertensive heart and chronic kidney disease with heart failure and stage 1 through stage 4 chronic kidney disease, or unspecified chronic kidney disease; K92.2 Gastrointestinal hemorrhage, unspecified; J44.9 Chronic obstructive pulmonary disease, unspecified; N18.31 Chronic kidney disease, stage 3a; I48.91 Unspecified atrial fibrillation; I25.10 Atherosclerotic heart disease of native coronary artery without angina pectoris; D64.9 Anemia, unspecified; E78.5 Hyperlipidemia, unspecified; I27.20 Pulmonary hypertension, unspecified; I08.1 Rheumatic disorders of both mitral and tricuspid valves; I73.9 Peripheral vascular disease, unspecified; D72.829 Elevated white blood cell count, unspecified; Z79.82 Long term (current) use of aspirin; Z95.0 Presence of cardiac pacemaker; Z95.1 Presence of aortocoronary bypass graft; Z87.891 Personal history of nicotine dependence; Z95.5 Presence of coronary angioplasty implant and graft; Z95.2 Presence of prosthetic heart valve; Z20.822 Contact with and (suspected) exposure to COVID-19; Z23 Encounter for immunization
CPT/HCPCS: OP; 99232-AI; 99233-AI; 99239; G0378; J1644; J7040

== ENCOUNTER 2021-10-12 17:54 | Inpatient (IN) | payer MEDICARE, OTHER ==
[~2021-10-12] VITALS: Ht 180.3 cm; Wt 89.3 kg
[~2021-10-12 17:54] MED LIST changes: +DUPIXENT P300 MG/2 M; +FERGON240 MG PO; +FLOMAX 0.40.4 MG/CAP PO; +NEURONTIN300 MG/CAP PO
[2021-10-12 18:59] LABS: ALBUMIN 2.6 gm/dL (3.4-4.8); BASO # 0.1 K/mm3 (0.0-0.2); BASO % 0.9 % (0.0-2.0); BILIRUBIN,TOTAL 1.1 mg/dL (0.2-1.2); CALCIUM 7.9 mg/dL (8.4-10.2); CREATININE, serum 2.2 mg/dL (0.72-1.25); EOS # 0.1 K/mm3 (0.0-0.7); EOS % 1.1 % (0.0-4.0); GRAN # 7.3 K/mm3 (1.4-6.5); GRAN % 79.6 % (42.2-75.2); HEMOGLOBIN 11.2 g/dl (13.5-18.0); LYMPH # 0.7 K/mm3 (1.2-3.4); MEAN CELL VOLUME 80 fl (80.0-100.0); MEAN CORPUSCULAR HEMOGLOBIN 26 pg (27-31); MEAN CORPUSCULAR HGB CONC 33 g/dl (33.0-37.0); MEAN PLATELET VOLUME 9.8 fl (7.4-10.4); MONO # 0.9 K/mm3 (0.1-0.6); PLATELET COUNT 462 K/mm3 (130-400); POTASSIUM 3.8 mmol/L (3.5-4.5); RED BLOOD COUNT 4.31 M/mm3 (4.20-5.60); REDCELL DISTRIBUTION WIDTH-CV 15.7 % (11.5-14.5); TOTAL PROTEIN 6.5 gm/dL (6.2-8.1)
[2021-10-12 19:00] LABS: HEMATOCRIT 34.3 % (42.0-52.0)
[2021-10-12 19:07] LABS: TROPONIN-I 0.061 ng/mL (0.00-0.033)
[2021-10-12 19:40] LABS: COLLECTION METHOD CLEAN CATCH
[2021-10-12 19:45] LABS: PH 7 (5-8); SQUAMOUS EPITHELIAL None Seen /hpf (0-10); URINE APPEARANCE Clear (CLEAR/HAZY); URINE BACTERIA None Seen /hpf (NONE SEEN); URINE BILIRUBIN Negative (NEGATIVE); URINE BLOOD Negative (NEGATIVE); URINE COLOR Yellow (YELLOW); URINE GLUCOSE Negative (NEGATIVE); URINE KETONE Negative (NEGATIVE); URINE LEUKOCYTE ESTERASE Negative (NEGATIVE); URINE NITRATE Negative (NEGATIVE); URINE PROTEIN(semi-quant) Negative (NEGATIVE); URINE RBC 0-2 /hpf (0-2); URINE UROBILINOGEN Negative (NEGATIVE); URINE WBC 0-2 /hpf (0-2)
[2021-10-13] VITALS (7 sets, daily range): BP systolic 92–130; BP diastolic 54–74; PULSE 59–84; TEMP 97.4–98.3
--- NOTE | 2021-10-13 01:53 | NUR ---
NOTIFIED HOSPITALIST AROUND 2200 OF PATIENT SECOND TROPONIN 0.057 AND TRENDING DOWN NO FURTHER LABS NECESSARY PATIENT DENIES CHEST PAIN. WILL CONTINUE TO MONITOR.
--- NOTE | 2021-10-13 04:34 | NUR ---
PATIENT SLEEPING AT THIS TIME CONTINUING WITH 2L VIA NC. REMAINS ON ISOLATION PRECAUTIONS COVID POSITIVE. CONTINUING WITH FR 1500. WILL CONTINUE TO MONITOR PATIENT.
[2021-10-13 06:46] LABS: BASO % 0.2 % (0.0-2.0); GRAN # 3.8 K/mm3 (1.4-6.5); GRAN % 87.6 % (42.2-75.2); HEMOGLOBIN 10.1 g/dl (13.5-18.0); LYMPH # 0.3 K/mm3 (1.2-3.4); MEAN CELL VOLUME 78 fl (80.0-100.0); MEAN CORPUSCULAR HEMOGLOBIN 25 pg (27-31); MEAN CORPUSCULAR HGB CONC 32 g/dl (33.0-37.0); MEAN PLATELET VOLUME 9.6 fl (7.4-10.4); MONO # 0.2 K/mm3 (0.1-0.6); MONO % 4.7 % (1.7-9.3); RED BLOOD COUNT 3.98 M/mm3 (4.20-5.60); REDCELL DISTRIBUTION WIDTH-CV 15.7 % (11.5-14.5)
[2021-10-13 06:47] LABS: HEMATOCRIT 31.2 % (42.0-52.0); PLATELET COUNT 344 K/mm3 (130-400)
[2021-10-13 07:16] LABS: CALCIUM 7.6 mg/dL (8.4-10.2); CREATININE, serum 2.16 mg/dL (0.72-1.25); POTASSIUM 3.8 mmol/L (3.5-4.5)
--- NOTE | 2021-10-13 10:59 | NUR ---
The patient is COVID positive. WILIAM contacted the patient's , Renetta (ph#[phone]), to discuss discharge plan. The patient lives in [place] with his . Renetta states that the patient needs assistance with ADLs and that he has a walker, cane, stairlift, walk-in shower, motorized scooter, and nocturnal oxygen from [facility]. She states that the patient has been needing to use his oxygen throughout the day now. Renetta states that she assists the patient with his ADLs. He does not have any home health services. She states that the [facility] was sending out an RN once a month awhile ago, but the [facility] these [facility], because they felt like he no longer needed them. The patient's PCP is Dr. Jannette Randle and he receives his medications on [place]. The patient's DPOA-HC is in EMR and it designates his . The alternate is his daughter, Amanda. Renetta reports that the plan is for the patient to return home with her upon discharge and that she feels comfortable with him returning home. WILIAM to ask for PT/OT to be ordered. *Discharge plan: home with . Will await therapy's recs*
--- NOTE | 2021-10-13 15:52 | NUR ---
Attemted to call patient; no answer. Call made to patient's , Renetta. She states that she and the patient's daughter have talked about patient's declining health status but hadn't made any specific decisions. She knows the patient would want to come home and have her care for him but she is also concerned about getting help as the [facility] has not provided much assistance to date. Renetta stated that she will talk with her employer about FMLA to ensure she is able to care for the patient, at least for that time and see how he does. Provided my contact information as well.
[2021-10-14 03:46] VITALS: BP 118/65; PULSE 52; TEMP 97.4
--- NOTE | 2021-10-14 06:00 | NUR ---
ASSESSMENT COMPLETE FOR THIS SHIFT. PT RESTING IN BED WATCHING THE NEWS. PT DENIED GENERAL PAIN, CHEST PAIN, PALPITATIONS, SOB, N,V,D OR DIZZINESS. PT EXPRESSED CONCERNS ABOUT HIM NEEDING HIS DUPIXENT SHOT, WHICH HE SAYS IS DUE 10/14/21. PT STATES HE COULD HAVE A FRIEND BRING IT TO THE HOSPITAL, IF WE DO NOT HAVE THE MED HERE. INFORMATION PASSED ON TO DAYSHIFT RN. PT EXPRESSED NO OTHER NEEDS AT THIS TIME. CALL LIGHT WITHIN REACH.
[2021-10-14 07:47] VITALS: BP 133/74; PULSE 68; TEMP 97.9
--- NOTE | 2021-10-14 11:13 | NUR ---
An exercise oximetry was ordered. RT notified SW that the patient does not qualify for oxygen. PT has worked with the patient and recommend home health vs outpatient PT. SW contacted the patient's , Renetta, to discuss their recommendation. Renetta states that she is open to either. She would like to contact the patient first, to see what he would rather do and states that she can contact SW back after. SW provided Renetta with this SW's phone number.
[2021-10-14 11:28] VITALS: BP 113/54; PULSE 78
[2021-10-14] MEDS ORDERED: DOXYCYCLINE HY100 MG PO (12:28)
[2021-10-14] MEDS ORDERED: CEFTIN500 MG PO (12:28)
[2021-10-14] MEDS ORDERED: DECADRON6 MG PO (12:28)
--- NOTE | 2021-10-14 14:40 | NUR ---
The patient's , Renetta, contacted WILIAM back. She states that the patient would prefer home health. WILIAM reviewed Medicare.gov's list of home health agencies that serve [place] with Renetta. Renetta chose [facility]. WILIAM contacted and faxed a referral to Terence at [facility]. Terence reports that they are able to accept the patient for services. The patient is to discharge back home with his today, 10/14, with home health services for snf/PT from [facility]. WILIAM notified and faxed orders to Terence at [facility]. No additional needs at this time.
--- NOTE | 2021-10-14 16:55 | NUR ---
PATEINT GIVEN ALL DISCHARGE INSTRUCTIONS AND EDUCATION, ALL BELONGINGS WITH HIM. PATIENT DISCHARGED T0 HOME WITH , STABLE CONDITION.
== END 2021-10-14 17:00 | disposition home or self-care (01) | DRG 177 ==
LOC: COL.ER 17:54 → MEDICAL 20:10
PROVIDERS: Physician Assistant; Student in an Organized Health Care Education/Training Program; ADMIT Internal Medicine
DX: U07.1 COVID-19 (principal); J96.01 Acute respiratory failure with hypoxia; I21.A1 Myocardial infarction type 2; I13.0 Hypertensive heart and chronic kidney disease with heart failure and stage 1 through stage 4 chronic kidney disease, or unspecified chronic kidney disease; I50.32 Chronic diastolic (congestive) heart failure; I48.91 Unspecified atrial fibrillation; J44.9 Chronic obstructive pulmonary disease, unspecified; E78.5 Hyperlipidemia, unspecified; I25.10 Atherosclerotic heart disease of native coronary artery without angina pectoris; I73.9 Peripheral vascular disease, unspecified; I27.20 Pulmonary hypertension, unspecified; I08.3 Combined rheumatic disorders of mitral, aortic and tricuspid valves; D50.0 Iron deficiency anemia secondary to blood loss (chronic); K31.819 Angiodysplasia of stomach and duodenum without bleeding; N18.30 Chronic kidney disease, stage 3 unspecified; Z23 Encounter for immunization; Z95.1 Presence of aortocoronary bypass graft; Z79.01 Long term (current) use of anticoagulants; Z95.0 Presence of cardiac pacemaker; Z95.5 Presence of coronary angioplasty implant and graft; Z88.8 Allergy status to other drugs, medicaments and biological substances
CPT/HCPCS: 99223-AI; 99232-AI; 99239; J0696; J1100; J8540

== ENCOUNTER → 2021-10-27 | Outpatient (CLI) | payer MEDICARE, OTHER ==
[~2021-10-27] MED LIST changes: +DECADRON6 MG PO
== END ==
LOC: COL.RAD 10:49
DX: N18.30 Chronic kidney disease, stage 3 unspecified (principal); I12.9 Hypertensive chronic kidney disease with stage 1 through stage 4 chronic kidney disease, or unspecified chronic kidney disease

== ENCOUNTER 2021-11-13 15:22 | Inpatient (IN) | payer MEDICARE, OTHER ==
[~2021-11-13] VITALS: Ht 180.3 cm; Wt 88.5 kg
[~2021-11-13 15:22] MED LIST changes: -MAGNESIUM ELEM300 MG PO; +MAGNESIUM200 MG PO; +VITAMIN C500 MG PO; -VTAMINC250TA PO
[2021-11-13 16:37] LABS: BASO # 0.1 K/mm3 (0.0-0.2); BASO % 0.8 % (0.0-2.0); EOS # 0.1 K/mm3 (0.0-0.7); EOS % 0.8 % (0.0-4.0); GRAN # 9.9 K/mm3 (1.4-6.5); GRAN % 83.9 % (42.2-75.2); HEMOGLOBIN 10.7 g/dl (13.5-18.0); LYMPH # 0.6 K/mm3 (1.2-3.4); LYMPH % 4.7 % (20.0-51.0); MEAN CELL VOLUME 81 fl (80.0-100.0); MEAN CORPUSCULAR HEMOGLOBIN 27 pg (27-31); MEAN CORPUSCULAR HGB CONC 33 g/dl (33.0-37.0); MEAN PLATELET VOLUME 9.5 fl (7.4-10.4); MONO # 1.1 K/mm3 (0.1-0.6); MONO % 9.4 % (1.7-9.3); PLATELET COUNT 463 K/mm3 (130-400); RED BLOOD COUNT 4.03 M/mm3 (4.20-5.60)
[2021-11-13 16:39] LABS: HEMATOCRIT 32.6 % (42.0-52.0)
[2021-11-13 16:53] LABS: ALBUMIN 2.9 gm/dL (3.4-4.8); BILIRUBIN,TOTAL 1.7 mg/dL (0.2-1.2); CALCIUM 9.1 mg/dL (8.4-10.2); CREATININE, serum 1.46 mg/dL (0.72-1.25); TOTAL PROTEIN 6.7 gm/dL (6.2-8.1)
[2021-11-13 19:38] VITALS: BP 132/62; PULSE 65; TEMP 97.8
[2021-11-13] MEDS ORDERED: PROTONIX 40MG T40 MG PO (20:28)
[2021-11-13] MEDS ORDERED: PLAVIX 75MG TAB75 MG PO (20:31)
[2021-11-13 20:33] VITALS: BP 124/72; PULSE 93; TEMP 98.6
[2021-11-13] MEDS ORDERED: FLOMAX 0.40.4 MG/CAP PO (20:37)
--- NOTE | 2021-11-13 21:54 | NUR ---
Patient arrived to medical unit from ER around 2029. Alert and oriented, and able to make needs known. Denies having pain and discomfort. Peripheral INT to left hand, finished ABX. INT'd. On oxygen at 3 L/min via NC. Reports his baseline is 3 L at night, RA during the day. Moist cough, unable to produce sputum. Wheezing/coarse lung sounds. BSAx4. No BM since comming into ER. Patient notified that we need at stool stample and voiced understanding. Non-pitting edema LLE, 1+ RLE. Voices no questions, needs, or concerns at this time. In bed with call light within reach. PA notified that med rec was complete and awaiting further orders.
[2021-11-13 23:29] VITALS: BP 109/56; PULSE 84; TEMP 98.2
[2021-11-14 03:13] VITALS: BP 142/99; PULSE 75; TEMP 97.8
--- NOTE | 2021-11-14 06:03 | NUR ---
Patient remains on oxygen at 3 L/min via NC. Still need stool sample. Voices no questions, needs, or concerns at this time. In bed with call light within reach.
[2021-11-14 06:43] LABS: HEMOGLOBIN 10.3 g/dl (13.5-18.0); MEAN CELL VOLUME 81 fl (80.0-100.0); MEAN CORPUSCULAR HEMOGLOBIN 26 pg (27-31); MEAN CORPUSCULAR HGB CONC 32 g/dl (33.0-37.0); MEAN PLATELET VOLUME 10.6 fl (7.4-10.4); PLATELET COUNT 408 K/mm3 (130-400); RED BLOOD COUNT 3.91 M/mm3 (4.20-5.60); REDCELL DISTRIBUTION WIDTH-CV 18.6 % (11.5-14.5)
[2021-11-14 06:48] LABS: HEMATOCRIT 31.8 % (42.0-52.0)
[2021-11-14 07:00] VITALS: BP 153/78; PULSE 77; TEMP 97.9
[2021-11-14 07:00] LABS: CREATININE, serum 1.47 mg/dL (0.72-1.25); MAGNESIUM 1.5 mg/dL (1.6-2.6); POTASSIUM 3.8 mmol/L (3.5-4.5)
[2021-11-14 07:21] LABS: BAND 3 % (0-10); LYMPHOCYTE 2 % (20.0-51.0); NEUTROPHILS 93 % (42.0-75.2)
[2021-11-14 07:23] LABS: OVALOCYTES 1+; PLATELET ESTIMATE INCREASED (NORMAL)
[2021-11-14 07:24] LABS: ANISOCYTOSIS 1+
--- NOTE | 2021-11-14 09:39 | NUR ---
Patient laying in bed, A&Ox4. VSS. IV CDI. Denies pain and discomfort. Contact precautions in place. Call light within reach
[2021-11-14 12:00] VITALS: BP 106/52; PULSE 70
--- NOTE | 2021-11-14 15:50 | NUR ---
SW met with pt to complete intake. Pt lives at home with his , Renetta @ [phone]. Pt is independent on ADLs, but does use a motorized wheelchair and 2L of o2 at night for COPD. Pt pcp is Jannette Recio and gets medications from [facility] and has no trouble obtaining cost. Pt reports his DPOA-HC his , Renetta and DPOA-HC form is in chart. No other needs at this time. DC: Home w/
[2021-11-14 16:00] VITALS: BP 103/54; PULSE 74
--- NOTE | 2021-11-14 18:27 | NUR ---
Patient had an uneventful day. A&Ox3. VSS. IV CDI. Independent in the room. Denies pain and discomfort. Contact precautions in place. Call light within reach
[2021-11-14 19:50] VITALS: BP 104/57; PULSE 89; TEMP 97.4
[2021-11-14 22:58] VITALS: BP 105/65; PULSE 86; TEMP 97.5
[2021-11-15 03:51] VITALS: BP 114/52; PULSE 83; TEMP 97.8
[2021-11-15 07:11] VITALS: BP 105/68; PULSE 86; TEMP 97.3
--- NOTE | 2021-11-15 08:00 | NUR ---
Patient laying in bed, A&Ox4. VSS 1L NC O2, no reported SOB. IV CDI. Denies pain and discomfort. Independent in the room. Call light within reach
[2021-11-15 11:15] VITALS: BP 103/54; PULSE 82; TEMP 97.5
[2021-11-15 12:31] LABS: CALCIUM 8.4 mg/dL (8.4-10.2); CREATININE, serum 2.23 mg/dL (0.72-1.25); POTASSIUM 3.9 mmol/L (3.5-4.5)
[2021-11-15 15:35] VITALS: BP 112/61; PULSE 87; TEMP 97.5
--- NOTE | 2021-11-15 19:05 | NUR ---
PT A&O X4 WITH VSS THROUGHOUT SHIFT, PT RESTED IN BED, PAIN TO LLQ WITH COUGH, PT HASN'T VOIDED ALL SHIFT, BLADDER SCAN SHOWED GREATER THAN 220ML, DR. PORRAS NOTIFIED, FALL PRECAUTIONS IN PLACE
[2021-11-15 19:28] VITALS: BP 107/58; PULSE 92; TEMP 97.4
[2021-11-15 23:37] VITALS: BP 100/50; PULSE 86; TEMP 97.9
[2021-11-16 03:36] VITALS: BP 106/49; PULSE 85; TEMP 97.4
[2021-11-16 06:15] LABS: MEAN CELL VOLUME 81 fl (80.0-100.0); MEAN CORPUSCULAR HGB CONC 33 g/dl (33.0-37.0); MEAN PLATELET VOLUME 9.9 fl (7.4-10.4); RED BLOOD COUNT 3.68 M/mm3 (4.20-5.60); REDCELL DISTRIBUTION WIDTH-CV 18.8 % (11.5-14.5)
[2021-11-16 06:21] LABS: HEMATOCRIT 29.7 % (42.0-52.0); HEMOGLOBIN 9.7 g/dl (13.5-18.0); MEAN CORPUSCULAR HEMOGLOBIN 26 pg (27-31)
[2021-11-16 06:23] LABS: PLATELET COUNT 543 K/mm3 (130-400)
[2021-11-16 06:46] LABS: CALCIUM 8.2 mg/dL (8.4-10.2); CREATININE, serum 2.49 mg/dL (0.72-1.25)
[2021-11-16 07:34] LABS: BAND 3 % (0-10); NEUTROPHILS 96 % (42.0-75.2)
[2021-11-16 07:37] LABS: PLATELET ESTIMATE INCREASED (NORMAL)
[2021-11-16 07:38] LABS: OVALOCYTES 1+
[2021-11-16 07:39] LABS: ANISOCYTOSIS 1+; MICROCYTOSIS 1+; POIKILOCYTOSIS 3+; SCHISTOCYTES 1+
[2021-11-16 07:40] LABS: HYPOCHROMIA 1+
[2021-11-16 07:42] LABS: BURR CELLS 2+
[2021-11-16 07:55] VITALS: BP 121/69; PULSE 85; TEMP 97.3
[2021-11-16 08:29] LABS: PATHOLOGY DIFF REVIEW OK
--- NOTE | 2021-11-16 10:48 | NUR ---
Commercial Driver'S License Driver met with patient to review discharge plan and discuss possible Home Health services. Patient states he is not interested in HH at this time as he does not feel it's needed. SW reviewed IM form with patient who verbalized understanding and provided signature. SW placed form in chart and provided copy to patient.
[2021-11-16 11:27] VITALS: BP 132/71; PULSE 89; TEMP 97.5
--- NOTE | 2021-11-16 11:27 | NUR ---
VSS, PT A&O X4, PT ABLE TO MAKE NEEDS KNOWN, PT DENIES PAIN, DINH IN PLACE FOR STRICT I AND O'S, CALL LIGHT IN PLACE, FALL PRECAUTIONS IN PLACE
[2021-11-16 15:41] VITALS: BP 118/73; PULSE 91; TEMP 97.4
--- NOTE | 2021-11-16 18:52 | NUR ---
surgery notified of consult
[2021-11-16 19:11] VITALS: BP 112/62; PULSE 71; TEMP 97.8
[2021-11-16 23:25] VITALS: BP 135/84; PULSE 94; TEMP 97.6
[2021-11-17 00:31] LABS: COLLECTION METHOD CLEAN CATCH
[2021-11-17 01:14] LABS: MUCOUS Present (NOT PRESENT); PH 5 (5-8); SQUAMOUS EPITHELIAL None Seen /hpf (0-10); URINE APPEARANCE Cloudy (CLEAR/HAZY); URINE BACTERIA None Seen /hpf (NONE SEEN); URINE BLOOD 3+ (NEGATIVE); URINE COLOR Amber (YELLOW); URINE GLUCOSE Negative (NEGATIVE); URINE KETONE Trace (NEGATIVE); URINE NITRATE Negative (NEGATIVE); URINE PROTEIN(semi-quant) 2+ (NEGATIVE); URINE RBC >50 /hpf (0-2); URINE UROBILINOGEN Negative (NEGATIVE); URINE WBC >50 /hpf (0-2)
[2021-11-17 03:38] VITALS: BP 108/74; PULSE 65; TEMP 97.6
[2021-11-17 06:38] LABS: HEMOGLOBIN 10.8 g/dl (13.5-18.0); MEAN CELL VOLUME 83 fl (80.0-100.0); MEAN CORPUSCULAR HEMOGLOBIN 27 pg (27-31); MEAN CORPUSCULAR HGB CONC 32 g/dl (33.0-37.0); MEAN PLATELET VOLUME 9.7 fl (7.4-10.4); PLATELET COUNT 586 K/mm3 (130-400); RED BLOOD COUNT 4.07 M/mm3 (4.20-5.60); REDCELL DISTRIBUTION WIDTH-CV 18.6 % (11.5-14.5)
[2021-11-17 06:43] LABS: HEMATOCRIT 33.6 % (42.0-52.0)
[2021-11-17 06:56] LABS: CALCIUM 8.5 mg/dL (8.4-10.2); CREATININE, serum 3.24 mg/dL (0.72-1.25); POTASSIUM 4.5 mmol/L (3.5-4.5)
--- NOTE | 2021-11-17 07:23 | NUR ---
PT RESTING IN BED
[2021-11-17 07:45] LABS: ANISOCYTOSIS 2+; BAND 2 % (0-10); LYMPHOCYTE 7 % (20.0-51.0); NEUTROPHILS 85 % (42.0-75.2); OVALOCYTES 1+; PLATELET ESTIMATE INCREASED (NORMAL)
[2021-11-17 08:00] VITALS: BP 135/76; PULSE 72; TEMP 98.3
[2021-11-17 11:24] LABS: ARTERIAL BLD GAS O2 SATURATION 87.6 % (92-100); ARTERIAL BLD GAS TCO2 CT 22.8; ARTERIAL BLOOD GAS BASE EXCESS -4.2 (-2-2); ARTERIAL BLOOD GAS HCO3 21.6 meq/L (22-26); ARTERIAL BLOOD GAS PCO2 42.2 mmHg (35-45); ARTERIAL BLOOD GAS pH 7.33 (7.35-7.45)
[2021-11-17 12:08] VITALS: BP 133/68; PULSE 63; TEMP 98.1
[2021-11-17 13:33] LABS: INR 1.3 (0.8-3.0); PROTHROMBIN TIME 14.7 SECONDS (9.7-12.8)
--- NOTE | 2021-11-17 13:56 | NUR ---
See merge for allmedication, assessment, intervention, and vital sign times.
--- NOTE | 2021-11-17 14:23 | NUR ---
International Controller met with to check in and review discharge plan. SW advised patient declined HH services and she stated she figured he did. Patient's advised they were scheduled to start with [facility] on the and would be agreeable to start services with them if patient is agreeable.
--- NOTE | 2021-11-17 17:27 | NUR ---
URINE LABS CALLED TO DR. HILL
[2021-11-17 19:49] VITALS: BP 132/72; PULSE 93
--- NOTE | 2021-11-17 21:00 | NUR ---
Full bed change provided due to weeping to BUE. Denies pain and discomfort. HD catheter to RIJ. Voices no questions, needs, or concerns at this time. In bed with call light within reach. On oxygen at 2 L/min via NC.
[2021-11-18 00:20] VITALS: BP 133/71; PULSE 84; TEMP 97.8
[2021-11-18 04:56] VITALS: BP 135/71; PULSE 69; TEMP 98.3
--- NOTE | 2021-11-18 05:59 | NUR ---
Patient had denied having pain and discomfort this shift. Repositioned in bed. Voices no questions, needs, or concerns at this time. High fall risk precautions in place.
[2021-11-18 06:19] LABS: HEMOGLOBIN 11.1 g/dl (13.5-18.0); MEAN CELL VOLUME 84 fl (80.0-100.0); MEAN CORPUSCULAR HEMOGLOBIN 26 pg (27-31); MEAN CORPUSCULAR HGB CONC 31 g/dl (33.0-37.0); MEAN PLATELET VOLUME 9.5 fl (7.4-10.4); PLATELET COUNT 563 K/mm3 (130-400); RED BLOOD COUNT 4.21 M/mm3 (4.20-5.60); REDCELL DISTRIBUTION WIDTH-CV 18.8 % (11.5-14.5)
[2021-11-18 06:21] LABS: HEMATOCRIT 35.3 % (42.0-52.0)
[2021-11-18 06:35] LABS: CALCIUM 8.6 mg/dL (8.4-10.2); CREATININE, serum 3.62 mg/dL (0.72-1.25); POTASSIUM 4.8 mmol/L (3.5-4.5)
[2021-11-18 07:21] VITALS: BP 141/87; PULSE 65; TEMP 97.8
--- NOTE | 2021-11-18 08:00 | NUR ---
PT LAYING SUPINE IN BED ON 2 LI VIA NC. PT IS ALERT BUT ONLY ORIENTED TO NAME. PT UNABLE TO SAY BIRTHDAY, YEAR OR LOCATION. DINH DRAINING AT BEDSIDE. PT STATES NO PAIN OR DISCOMFORT. PT STATES NO NEEDS AT THIS TIME. CALL LIGHT IS WITHIN REACH. ORIENTED PT ON HOW TO USE. BED ALARM ON.
--- NOTE | 2021-11-18 08:10 | NUR ---
PT TO DIALYSIS
[2021-11-18 08:42] LABS: BAND 2 % (0-10); LYMPHOCYTE 5 % (20.0-51.0); NEUTROPHILS 92 % (42.0-75.2)
[2021-11-18 08:43] LABS: BURR CELLS 1+; OVALOCYTES 1+; POIKILOCYTOSIS 2+; SCHISTOCYTES 1+
[2021-11-18 08:44] LABS: ANISOCYTOSIS 1+; HYPOCHROMIA 1+; MICROCYTOSIS 1+
[2021-11-18 08:45] LABS: PLATELET ESTIMATE INCREASED (NORMAL)
--- NOTE | 2021-11-18 10:03 | NUR ---
Kiln Mechanic contacted Carmelo at [facility] who advised they attempted to start services with patient, however he declined. WILIAM advised Carmelo that she will update her if patient would like services.
--- NOTE | 2021-11-18 11:25 | NUR ---
PT RETURN TO ROOM FROM DIALYSIS
[2021-11-18 11:26] VITALS: BP 134/58; PULSE 65; TEMP 97.3
[2021-11-18 15:22] VITALS: BP 111/54; PULSE 91; TEMP 97.3
[2021-11-18 18:06] LABS: HEPATITIS B SURFACE ANTIBODY <2.0 (()); HEPATITIS B SURFACE ANTIGEN Negative (Negative); HEPATITIS C VIRUS ANTIBODY Negative (Negative)
--- NOTE | 2021-11-18 18:27 | NUR ---
PT LAYING SUPINE IN BED ON 0.5LIT VIA NC. PT IS ONLY ALERT TO NAME. PT STATES NO PAIN OR DISCOMFORT. PT DOES HAVE SKIN TEAR ON RIGHT ELBOW AND MEPILEX WAS PUT INTO PLACE. DINH IS DRAINING AT BEDSIDE. PT DID HAVE 1 LIQUID DARK STOOL TODAY. PT STATES NO NEEDS/CONCERNS. BED ALARM IS ON. CALL LIGHT IS WITHIN REACH.
[2021-11-18 19:38] VITALS: BP 118/66; PULSE 82; TEMP 97.8
--- NOTE | 2021-11-18 20:55 | NUR ---
Patient assessed around 1914. Patient is answering questions appropriately, but does need questions asked a few times. When asked what month is was he said "October." Asked where he was at and said "October" again a few times, but when asked the third time, he said "oh, [place]." Patient had loose dark stool. Collected sample and called [facility]. New order for GI panel and SOB. Sent to lab. Patient in bed with call light within reach. High fall risk precautions in place.
[2021-11-18 22:06] LABS: HEMOGLOBIN 11.1 g/dl (13.5-18.0)
--- NOTE | 2021-11-18 23:47 | NUR ---
Patient's GI Panel negative. Does have positive stool occult. Notified MARISSA Tapia. H&H drawn, result of 11.1, same as morning draw. Asked if she wanted Heparin to be continued or held, order recieved to hold medication. Patient given bed bath. Stated he was hungry and given snack. Voices no further questions, needs, or concerns at this time. In bed with call light within reach.
[2021-11-19 00:18] VITALS: BP 109/53; PULSE 62; TEMP 97.5
[2021-11-19 05:06] VITALS: BP 144/76; PULSE 62; TEMP 98
--- NOTE | 2021-11-19 05:36 | NUR ---
Patient denies pain and discomfort. Repositioned in bed and changed due to being incontinent of bowel. Sat up on side of bed this morning thinking it was time to get up. Explained time to patient and laid back in the bed. Voices no questions, need,s or concerns at this time. In bed with call light within reach. Bed alarm on.
[2021-11-19 07:02] LABS: BASO % 0.1 % (0.0-2.0); GRAN # 11.2 K/mm3 (1.4-6.5); GRAN % 85.8 % (42.2-75.2); HEMOGLOBIN 11.1 g/dl (13.5-18.0); LYMPH # 0.6 K/mm3 (1.2-3.4); LYMPH % 4.5 % (20.0-51.0); MEAN CELL VOLUME 81 fl (80.0-100.0); MEAN CORPUSCULAR HEMOGLOBIN 26 pg (27-31); MEAN CORPUSCULAR HGB CONC 33 g/dl (33.0-37.0); MEAN PLATELET VOLUME 9.9 fl (7.4-10.4); MONO # 1.1 K/mm3 (0.1-0.6); MONO % 8.5 % (1.7-9.3); PLATELET COUNT 531 K/mm3 (130-400); RED BLOOD COUNT 4.22 M/mm3 (4.20-5.60); REDCELL DISTRIBUTION WIDTH-CV 18.8 % (11.5-14.5)
[2021-11-19 07:18] LABS: HEMATOCRIT 34.2 % (42.0-52.0)
[2021-11-19 07:24] LABS: CALCIUM 8.3 mg/dL (8.4-10.2); CREATININE, serum 3.37 mg/dL (0.72-1.25); POTASSIUM 4.6 mmol/L (3.5-4.5)
[2021-11-19 08:00] VITALS: BP 128/79; PULSE 59; TEMP 97
--- NOTE | 2021-11-19 08:15 | NUR ---
PT LAYING SUPINE IN BED WITH O2 LAYING OFF OF HIM ON THE BED. O2 VIA NC WAS PLACED BACK ON PT. PT VERY DROWSY THIS AM. PT WAS ABLE TO WAKE UP ENOUGH TO TAKE HIS MEDICCATION AND SOME DRINKS AND THEN GOES RIGHT BACK TO SLEEP. PT IS ABLE TO SAY HIS FIRST NAME BUT THAT IS ALL. NOT ABLE TO ANSWER ANY OTHER ORIENTATION QUESTIONS. PT IS SCHEDULED TO GO TO DIALYSIS THIS AM AROUND 9. NO DIARRHEA IS NOTED AT THIS TIME. BED ALARM IS ON. CALL LIGHT IS WITHIN REACH.
--- NOTE | 2021-11-19 10:36 | NUR ---
PT RETURNED FROM DIALYSIS. PT WAS UNABLE TO GET DIALYSIS AT THIS TIME DUE TO MACHINE DISFUNCTION. DIALYSIS NURSE STATES THAT SHE WILL LET US KNOW WHEN THEY CAN TAKE HIM BACK.
--- NOTE | 2021-11-19 14:52 | NUR ---
Maintenance Shop Clerk reviewed PT/OT notes from last 48 hours and PT noted that patient required an assist of 2. OT also is recommending SNF. SW followed up with patient's , Renetta while patient is in dialysis. Renetta advised dialysis is new to patient and contributes to his weakness. SW discussed SNF recommendation and Renetta advised patient's daughter is coming to [facility] and they will be discussing this as a family. Renetta worries patient will not be agreeable to SNF, and in that case, she plans to take patient home. Renetta was agreeable to have referrals faxed to [facility], and [facility]. SW faxed referrals. Discharge Plan: SNF referrals pending, however patient may not be agreeable.
[2021-11-19 15:51] VITALS: BP 150/56; PULSE 56
--- NOTE | 2021-11-19 18:28 | NUR ---
PT SITTING SUPINE IN BED ON ROOM AIR. PT IS A&O X4. PT STATES THAT HE IS HUNGRY BUT DOES NOT WANT ANYTHIGN TO EAT EXCEPT A PUDDING AND MILK. ITEMS WERE GIVEN TO PT. PT ABLE TO HOLD AND FEED HIMSELF. DINH DRAINING AT BEDSIDE, YELLOW URINE. PT STATES NO OTHER NEEDS/CONCERNS AT THIS TIME. BED ALARM IS ON AND CALL LIGHT IS WITHIN REACH.
[2021-11-19 20:56] VITALS: BP 101/52; PULSE 72; TEMP 97.6
--- NOTE | 2021-11-19 22:21 | NUR ---
Patient alert and oriented tonight. Sitting on side of bed eatting snack as requested. Denies pain and discomfort. Voices no questions, needs, or concerns at this time. In bed with call light within reach. Bed alarm on.
[2021-11-19 23:51] VITALS: BP 111/51; PULSE 76; TEMP 97.8
[2021-11-20 04:48] VITALS: BP 108/56; PULSE 94; TEMP 97.9
--- NOTE | 2021-11-20 05:44 | NUR ---
Patient repositioned in bed during the night. Denies pain and discomfort. Voices no questions, needs, or concerns at this time. In bed with call light within reach. Bed alarm on. Did ambulate to bathroom with assistance during the night.
[2021-11-20 06:26] LABS: HEMOGLOBIN 10.2 g/dl (13.5-18.0); MEAN CELL VOLUME 83 fl (80.0-100.0); MEAN CORPUSCULAR HEMOGLOBIN 27 pg (27-31); MEAN CORPUSCULAR HGB CONC 32 g/dl (33.0-37.0); MEAN PLATELET VOLUME 10.1 fl (7.4-10.4); PLATELET COUNT 441 K/mm3 (130-400); RED BLOOD COUNT 3.85 M/mm3 (4.20-5.60); REDCELL DISTRIBUTION WIDTH-CV 18.9 % (11.5-14.5)
[2021-11-20 06:29] LABS: HEMATOCRIT 31.9 % (42.0-52.0)
[2021-11-20 06:34] LABS: CALCIUM 8.2 mg/dL (8.4-10.2); CREATININE, serum 2.58 mg/dL (0.72-1.25); POTASSIUM 4.4 mmol/L (3.5-4.5)
[2021-11-20 07:21] LABS: BAND 2 % (0-10); EOSINOPHIL 1 % (0-4); LYMPHOCYTE 2 % (20.0-51.0); NEUTROPHILS 86 % (42.0-75.2)
[2021-11-20 07:22] LABS: ANISOCYTOSIS 1+; HYPOCHROMIA 1+; PLATELET ESTIMATE INCREASED (NORMAL)
[2021-11-20 08:05] VITALS: BP 135/62; PULSE 65; TEMP 97.6
--- NOTE | 2021-11-20 08:30 | NUR ---
PT SITTING UP IN BED FOR BREAKFAST. MORNING MEDICATIONS GIVEN. SHIFT ASSESSMENT COMPLETED. PT REPORTS ABDOMINAL PAIN WHEN COUGHING. DINH CATHETER IN PLACE, DRAINING WELL. PT A&O TO SELF AND PLACE. DENIES ANY NEEDS AT THIS TIME. WILL CONTINUE TO MONITOR.
[2021-11-20 11:53] VITALS: BP 116/62; PULSE 65; TEMP 98.2
[2021-11-20 16:00] VITALS: BP 137/68; PULSE 73; TEMP 97.4
[2021-11-20 20:11] VITALS: BP 112/63; PULSE 76; TEMP 97.9
[2021-11-21 00:02] VITALS: BP 125/59; PULSE 72; TEMP 97.8
[2021-11-21 04:56] VITALS: BP 135/67; PULSE 72; TEMP 97.6
--- NOTE | 2021-11-21 05:45 | NUR ---
ASSESSMENT COMPLETE FOR HUMAN RESOURCES ANALYST. PT RESTING IN BED WATCHING TV. PT A&O X 4 FOR ME. PT DENIED GENERAL PAIN, CHEST PAIN, PALPITATIONS, SOB, N,V,D OR DIZZINESS. PT TALKED A BIT ABOUT HIS DAUGHTER AND HIS SERVICE. PT EXPRESSED NO ADDITIONAL NEEDS AT THIS TIME. CALL LIGHT WITHIN REACH.
[2021-11-21 06:01] LABS: HEMOGLOBIN 10.2 g/dl (13.5-18.0); MEAN CELL VOLUME 81 fl (80.0-100.0); MEAN CORPUSCULAR HEMOGLOBIN 27 pg (27-31); MEAN CORPUSCULAR HGB CONC 33 g/dl (33.0-37.0); MEAN PLATELET VOLUME 9.9 fl (7.4-10.4); PLATELET COUNT 480 K/mm3 (130-400); RED BLOOD COUNT 3.85 M/mm3 (4.20-5.60); REDCELL DISTRIBUTION WIDTH-CV 19.4 % (11.5-14.5)
[2021-11-21 06:08] LABS: CALCIUM 8.3 mg/dL (8.4-10.2); CREATININE, serum 2.76 mg/dL (0.72-1.25); POTASSIUM 4.4 mmol/L (3.5-4.5)
[2021-11-21 06:19] LABS: HEMATOCRIT 31.3 % (42.0-52.0)
[2021-11-21 07:27] LABS: ANISOCYTOSIS 1+; HYPOCHROMIA 1+; LYMPHOCYTE 2 % (20.0-51.0); NEUTROPHILS 91 % (42.0-75.2); PLATELET ESTIMATE INCREASED (NORMAL)
[2021-11-21 07:28] LABS: OVALOCYTES 1+
[2021-11-21 07:47] VITALS: BP 145/70; PULSE 105; TEMP 98.1
--- NOTE | 2021-11-21 09:47 | NUR ---
PT RESTING IN BED. MORNING MEDICATIONS GIVEN. SHIFT ASSESSMENT COMPLETED. PT ALERT AND PARTIALLY ORIENTED THIS AM. REPORT HIS HD CATH IS BOTHERING HIM, DENIES ANY OTHER PAIN OR CONCERN AT THIS TIME. UPDATED PT ON POC. WILL CONTINUE TO MONITOR.
--- NOTE | 2021-11-21 11:16 | NUR ---
Dr. Salmeron informs this Hay Chopper that patient may be more appropriate for a [facility] placement referral, pending dialysis needs. Social Work continues to follow for discharge planning and placement. At this time, referrals are pending for SNF placements: [facility], [facility], and [facility]. *Discharge plan: [facility] vs. SN[facility]*
[2021-11-21 11:42] VITALS: BP 122/76; PULSE 61; TEMP 97.6
--- NOTE | 2021-11-21 14:09 | NUR ---
PT OFF UNIT FOR DIALYSIS AT THIS TIME
[2021-11-21 19:09] VITALS: BP 147/66; PULSE 67; TEMP 97.2
[2021-11-22] VITALS (7 sets, daily range): BP systolic 103–149; BP diastolic 48–67; PULSE 66–96; TEMP 97.4–98
[2021-11-22 08:27] LABS: HEMOGLOBIN 10.4 g/dl (13.5-18.0); MEAN CELL VOLUME 84 fl (80.0-100.0); MEAN CORPUSCULAR HEMOGLOBIN 27 pg (27-31); MEAN CORPUSCULAR HGB CONC 32 g/dl (33.0-37.0); MEAN PLATELET VOLUME 9.8 fl (7.4-10.4); RED BLOOD COUNT 3.93 M/mm3 (4.20-5.60); REDCELL DISTRIBUTION WIDTH-CV 19.6 % (11.5-14.5)
[2021-11-22 08:37] LABS: CALCIUM 8.3 mg/dL (8.4-10.2); CREATININE, serum 2.07 mg/dL (0.72-1.25); POTASSIUM 4.6 mmol/L (3.5-4.5)
[2021-11-22 08:46] LABS: HEMATOCRIT 32.8 % (42.0-52.0); PLATELET COUNT 359 K/mm3 (130-400)
[2021-11-22 08:51] LABS: EOSINOPHIL 4 % (0-4); LYMPHOCYTE 10 % (20.0-51.0); NEUTROPHILS 81 % (42.0-75.2)
[2021-11-22 08:52] LABS: OVALOCYTES 2+; PLATELET ESTIMATE NORMAL (NORMAL); POIKILOCYTOSIS 2+; SCHISTOCYTES 1+
[2021-11-22 08:53] LABS: ANISOCYTOSIS 2+; HYPOCHROMIA 2+; MICROCYTOSIS 1+
--- NOTE | 2021-11-22 13:46 | NUR ---
SW faxed updates to [facility], [facility], and [facility]. Awaiting acceptance.
--- NOTE | 2021-11-22 15:56 | NUR ---
Hospitalist spoke with Factory Engineer and advised patient will need a referral to [facility] and will discuss this with patient and his . WILIAM contacted [facility] and faxed referral. [facility] advised patient meets criteria and they can accept once medically cleared for discharge.
--- NOTE | 2021-11-22 17:30 | NUR ---
Patient had an uneventful day. Denied pain/nausea/shortness of breath. VS remain stable. Garcia cath with dark yellow urine. O2@2L/NC. Tele reporting paced. Denies current needs. Call light in reach. Will monitor.
--- NOTE | 2021-11-22 23:02 | NUR ---
Patient assessed around 193. Alert and oriented, and able to make needs known. Denies having pain and discomfort. Denies SOB and dyspnea. On room air. Repositioned in bed. Voices no questions, needs, or concerns at this time. In bed with call light within reach. Bed alarm on.
[2021-11-23 04:35] VITALS: BP 116/63; PULSE 78; TEMP 98.6
--- NOTE | 2021-11-23 05:16 | NUR ---
Patient has denied pain and discomfort this shift. has been alert and oriented. Voices no questions, needs, or concerns at this time. In bed with call light within reach. Bed alarm on.
[2021-11-23 06:15] LABS: HEMOGLOBIN 10.4 g/dl (13.5-18.0); MEAN CELL VOLUME 80 fl (80.0-100.0); MEAN CORPUSCULAR HEMOGLOBIN 27 pg (27-31); MEAN CORPUSCULAR HGB CONC 33 g/dl (33.0-37.0); MEAN PLATELET VOLUME 9.9 fl (7.4-10.4); PLATELET COUNT 348 K/mm3 (130-400); RED BLOOD COUNT 3.87 M/mm3 (4.20-5.60); REDCELL DISTRIBUTION WIDTH-CV 20.1 % (11.5-14.5)
[2021-11-23 06:28] LABS: HEMATOCRIT 31.1 % (42.0-52.0)
[2021-11-23 06:37] LABS: CALCIUM 8.2 mg/dL (8.4-10.2); CREATININE, serum 2.16 mg/dL (0.72-1.25); POTASSIUM 4.6 mmol/L (3.5-4.5)
[2021-11-23 07:12] LABS: EOSINOPHIL 2 % (0-4); LYMPHOCYTE 4 % (20.0-51.0); PLATELET ESTIMATE NORMAL (NORMAL)
[2021-11-23 07:13] LABS: ANISOCYTOSIS 2+; MICROCYTOSIS 1+; NEUTROPHILS 85 % (42.0-75.2)
[2021-11-23 07:16] LABS: OVALOCYTES 2+
[2021-11-23 07:22] VITALS: BP 106/48; PULSE 64; TEMP 97.7
--- NOTE | 2021-11-23 10:05 | NUR ---
Wilberto, at [facility], reports that they are able to accept the patient and have a bed available today. SW notified the clinical team. SW then attended clinical rounds. The hospitalist discussed [facility] with the patient and the benefits of going. The patient would like for the hospitalist to talk to his about this option. He states that if his is agreeable, then he would be agreeable to going.
[2021-11-23 11:30] VITALS: BP 119/60; PULSE 65; TEMP 97.7
--- NOTE | 2021-11-23 14:05 | NUR ---
The hospitalist was able to talk to the patient's and she is agreeable with the patient going to [facility] today. WILIAM updated Wilber[facility] at [facility]. The patient is to discharge today, 11/23, to [facility] in [place]. Transportation was scheduled at 1445, via [facility]. WILIAM informed the patient's RN, [facility] at [facility], and his (Renetta) of the transport time. Renetta also gave approval to sign the EMS Consent form on her behalf. No additional needs at this time.
[2021-11-23 16:00] VITALS: BP 116/58; PULSE 68; TEMP 98
--- NOTE | 2021-11-23 17:19 | NUR ---
EMS here to transport patient to [facility]. Garcia cath still in place per dr order. Right FA INT/Right IJ HD cath. Report given. Belongings sent with patient. Left floor in stable condition.
--- NOTE | 2021-11-23 17:30 | NUR ---
Attenpt made to call report to [facility] receiving RN. Message left.
--- NOTE | 2021-11-23 17:42 | NUR ---
Attempt made to call report to [facility] receiving RN. Message left to call back.
--- NOTE | 2021-11-23 18:19 | NUR ---
Report given to nurse Carmen RN at [facility].
== END 2021-11-23 17:40 | DRG 291 ==
LOC: COL.ER 15:22 → MEDICAL 18:11
PROVIDERS: Nurse Practitioner; Personal Emergency Response Attendant; Physician Assistant; Registered Nurse; Student in an Organized Health Care Education/Training Program; ADMIT Internal Medicine
PROC: 02HV33Z Insertion of Infusion Device into Superior Vena Cava, Percutaneous Approach (ICD-10-PCS; 2021-11-17)
PROC: B5181ZA Fluoroscopy of Superior Vena Cava using Low Osmolar Contrast, Guidance (ICD-10-PCS; 2021-11-17)
PROC: 5A1D70Z Performance of Urinary Filtration, Intermittent, Less than 6 Hours Per Day (ICD-10-PCS; principal; 2021-11-18)
DX: I13.0 Hypertensive heart and chronic kidney disease with heart failure and stage 1 through stage 4 chronic kidney disease, or unspecified chronic kidney disease (principal); G93.41 Metabolic encephalopathy; I50.33 Acute on chronic diastolic (congestive) heart failure; J44.1 Chronic obstructive pulmonary disease with (acute) exacerbation; N17.9 Acute kidney failure, unspecified; R18.8 Other ascites; J91.8 Pleural effusion in other conditions classified elsewhere; I48.91 Unspecified atrial fibrillation; I25.10 Atherosclerotic heart disease of native coronary artery without angina pectoris; I27.20 Pulmonary hypertension, unspecified; I73.9 Peripheral vascular disease, unspecified; E86.0 Dehydration; E78.5 Hyperlipidemia, unspecified; N18.30 Chronic kidney disease, stage 3 unspecified; R19.7 Diarrhea, unspecified; I08.3 Combined rheumatic disorders of mitral, aortic and tricuspid valves; K76.0 Fatty (change of) liver, not elsewhere classified; R09.02 Hypoxemia; K80.20 Calculus of gallbladder without cholecystitis without obstruction; D50.9 Iron deficiency anemia, unspecified; I99.8 Other disorder of circulatory system; K44.9 Diaphragmatic hernia without obstruction or gangrene; R47.81 Slurred speech; Z95.1 Presence of aortocoronary bypass graft; Z95.5 Presence of coronary angioplasty implant and graft; Z95.0 Presence of cardiac pacemaker; Z87.19 Personal history of other diseases of the digestive system; Z88.3 Allergy status to other anti-infective agents; Z99.81 Dependence on supplemental oxygen; Z86.16 Personal history of COVID-19; Z87.891 Personal history of nicotine dependence; Z23 Encounter for immunization
CPT/HCPCS: 99233-AI; C9113; J0456; J0696; J1644; J1940; J2270; J2405; J2920; J2930; J3010; J3475; J7030; J7050; J7512

== ENCOUNTER 2022-01-15 13:44 | Emergency (ER) | payer MEDICARE, OTHER ==
[~2022-01-15] VITALS: Ht 180.3 cm; Wt 83.1 kg
[2022-01-15 13:48] VITALS: TEMP 99.1
[2022-01-15 14:24] LABS: BASO # 0.1 K/mm3 (0.0-0.2); BASO % 0.8 % (0.0-2.0); EOS # 0.2 K/mm3 (0.0-0.7); EOS % 1.7 % (0.0-4.0); GRAN # 8.7 K/mm3 (1.4-6.5); GRAN % 82.7 % (42.2-75.2); HEMOGLOBIN 10.8 g/dl (13.5-18.0); LYMPH # 0.5 K/mm3 (1.2-3.4); LYMPH % 4.8 % (20.0-51.0); MEAN CELL VOLUME 84 fl (80.0-100.0); MEAN CORPUSCULAR HEMOGLOBIN 27 pg (27-31); MEAN CORPUSCULAR HGB CONC 33 g/dl (33.0-37.0); MEAN PLATELET VOLUME 9.5 fl (7.4-10.4); MONO % 9.4 % (1.7-9.3); PLATELET COUNT 444 K/mm3 (130-400); RED BLOOD COUNT 3.95 M/mm3 (4.20-5.60); REDCELL DISTRIBUTION WIDTH-CV 17.1 % (11.5-14.5)
[2022-01-15 14:25] LABS: HEMATOCRIT 33.2 % (42.0-52.0)
[2022-01-15 14:37] LABS: COLLECTION METHOD CLEAN CATCH
[2022-01-15 14:45] LABS: ALBUMIN 2.7 gm/dL (3.4-4.8); BILIRUBIN,TOTAL 1.8 mg/dL (0.2-1.2); CALCIUM 7.5 mg/dL (8.4-10.2); CREATININE, serum 2.42 mg/dL (0.72-1.25); POTASSIUM 3.6 mmol/L (3.5-4.5); TOTAL PROTEIN 6.5 gm/dL (6.2-8.1)
[2022-01-15 15:09] LABS: SQUAMOUS EPITHELIAL 0-2 /hpf (0-10); URINE BACTERIA Rare /hpf (NONE SEEN); URINE RBC 0-2 /hpf (0-2)
[2022-01-15 15:10] LABS: PH 7.5 (5.0-8.5); URINE APPEARANCE Clear (CLEAR/HAZY); URINE BLOOD Negative (NEGATIVE); URINE COLOR Yellow (YELLOW); URINE GLUCOSE Negative (NEGATIVE); URINE KETONE Negative (NEGATIVE); URINE NITRATE Negative (NEGATIVE); URINE PROTEIN(semi-quant) Negative (NEGATIVE); URINE UROBILINOGEN 0.2 E.U/dL (0.2-1.0)
[2022-01-15 17:30] VITALS: BP 115/73; PULSE 96
[2022-01-19] MEDS ORDERED: ZAROXOLYN 2.52.5 MG PO (20:25)
[2022-01-19] MEDS ORDERED: ZEBETA10 MG PO (20:25)
[2022-01-19] MEDS ORDERED: PROTONIX 40MG T40 MG PO (20:26)
[2022-01-19] MEDS ORDERED: FLOMAX 0.40.4 MG/CAP PO (20:26)
[2022-01-19] MEDS ORDERED: PLAVIX 75MG TAB75 MG PO (20:26)
[2022-01-19] MEDS ORDERED: TRELEGY ELLIPT1 EACH IH (20:27)
[2022-01-19] MEDS ORDERED: IPRATROPIUM BROM3 M1 IH (20:27)
[2022-01-19] MEDS ORDERED: FERRO-TIME325 MG PO (20:27)
[2022-01-19] MEDS ORDERED: LIPITOR 80MG80 MG PO (20:28)
[2022-01-19] MEDS ORDERED: MAGNESIUM500 MG PO (20:28)
[2022-01-19] MEDS ORDERED: CALCIUM 600MG+D1 TAB PO (20:28)
[2022-01-19] MEDS ORDERED: NEURONTIN300 MG/CAP PO (20:29)
[2022-01-19] MEDS ORDERED: BUMEX 1MG TA1 MG/TA1 PO (20:29)
[2022-01-19] MEDS ORDERED: ZYRTEC 10MG10 MG PO (20:29)
[2022-01-19] MEDS ORDERED: DUPIXENT P300 MG/2 M SQ (20:30)
== END 2022-01-15 17:45 | disposition home or self-care (01) ==
LOC: COL.ER 13:44
PROVIDERS: Emergency Medicine
DX: R19.7 Diarrhea, unspecified (principal); E86.0 Dehydration; R77.8 Other specified abnormalities of plasma proteins; Z20.822 Contact with and (suspected) exposure to COVID-19
CPT/HCPCS: J2405; J7040; J7050